=== PATIENT | male | born 1950 | race Caucasian/White ===

== ENCOUNTER 2016-06-08 10:15 | Emergency (ER) | payer OTHER ==
[~2016-06-08] VITALS: Ht 175.3 cm; Wt 80.6 kg
[~2016-06-08 10:15] MED LIST: ACET-1487 PO; AMAN100C18 PO; ASCA500 PO; ASPI81TA25 PO; ATOR-24 PO; B-COTAB18 PO; CALC1TAB10 PO; CHOL100010 PO; CLOB-58 TOP; COEN400C5 PO; CYAN100020; LISI10TA PO; MULT-884; NXM/40 PO; OXYC1TAB3 PO; PRAM1TAB52 PO; TAMS0.4C38 PO; VITA400C28 PO; [UNRECOGNIZED DRUG - CODE] PO
[2016-06-08 10:23] VITALS: TEMP 36.6; Ht 175.3 cm; Wt 80.6 kg
[2016-06-08] MEDS ORDERED: METO25TA3 PO (10:33)
[2016-06-08] MEDS ORDERED: DIAZ-165 PO (10:33)
[2016-06-08] MEDS ORDERED: CHOLTAB5 PO (10:33)
[2016-06-08] MEDS ORDERED: MoRPHine SULFATE 10 MG/ML CARP/VIAL IV STA ×2 (10:38→11:43)
[2016-06-08] MEDS ORDERED: ONDANSETRON INJ 2 MG/ML 2 ML VIAL IV STA (10:38)
[2016-06-08] MEDS ORDERED: SODIUM CHLORIDE 0.9% 1000ML 1,000 ML IV STA (10:38)
[2016-06-08 10:53] VITALS: O2SAT 99
[2016-06-08 11:16] LABS: BASO % 0.2 %; BASO ABS # 0.02 K/uL (0-0.2); COMPLETE YES; EOS % 0.8 %; HEMATOCRIT 40.9 % (42-52); IG% 0.3 %; LYMPH % 9.1 %; LYMPH ABS # 0.92 K/uL (1.2-3.4); MEAN CELL VOLUME 89.1 fL (80-100); MEAN CORPUSCULAR HEMOGLOBIN 30.9 pg (25-34); MEAN CORPUSCULAR HGB CONC 34.7 g/dl (32-36); MEAN PLATELET VOLUME 9.7 fL (7.4-10.4); MONO % 4.2 %; NEUT % 85.4 %; PLATELET COUNT 153 K/uL (130-400); RED BLOOD COUNT 4.59 M/uL (4.7-6.1); WHITE BLOOD COUNT 10.14 K/uL (4.8-10.8)
--- NOTE | 2016-06-08 11:31 | DIAGNOSTIC IMAGING REPORT ---
CT HEAD WITHOUT CONTRAST (CT) CLINICAL HISTORY: Syncope COMPARISON STUDY: 08/02/2012 TECHNIQUE: Axial CT of the brain is performed from the vertex to the skull base. IV contrast was not administered for this examination. CT DOSE: 1115.87 mGy.cm FINDINGS: No intra or extra-axial mass lesions are visualized. There is no CT evidence of acute cortical infarction. There is no evidence of midline shift. There is no acute hemorrhage. No calvarial fractures are visualized. There is no evidence of pathologic ventricular dilatation. There is no evidence of acute sinusitis. There is a right maxilla sinus polyp/retention cyst. There are multiple nasal bone fractures. IMPRESSION: 1. Multiple nasal bone fractures 2. No evidence of acute intracranial injury. No acute intracranial findings. Electronically signed by: Marv Nicole M.D. 06/08/2016 11:29 AM Dictated Date/Time: 06/08/2016 11:27 AM
[2016-06-08 11:33] LABS: BUN/CREATININE RATIO 12.4 (10-20); CALCIUM 9.7 mg/dl (8.5-10.1); CREATININE 1.1 mg/dl (0.60-1.40); POTASSIUM 4.2 mmol/L (3.5-5.1)
--- NOTE | 2016-06-08 11:35 | DIAGNOSTIC IMAGING REPORT ---
CT FACIAL BONES-MXILLOFAC WITHOUT CT DOSE: CLINICAL HISTORY: Facial pain status post trauma. Syncope. COMPARISON STUDY: No previous studies for comparison. TECHNIQUE: Helical images were acquired in the transverse plane. The study was reviewed and analyzed on the independent 3-D workstation. The pterygoid plates appear intact. The zygomatic arches appear intact. The globes appear intact. There is no evidence of orbital emphysema. The orbital burris and floor appear intact. There are multiple nasal bone fractures. There is S-shaped nasal deviation.. There is a left-sided nasal septal spur. There are bilateral maxillary sinus retention cysts. The mandibular condyles appear intact. IMPRESSION: Acute nasal bone fractures. Electronically signed by: Marv Nicole M.D. 06/08/2016 11:33 AM Dictated Date/Time: 06/08/2016 11:30 AM
--- NOTE | 2016-06-08 11:38 | DIAGNOSTIC IMAGING REPORT ---
CT SCAN OF THE CERVICAL SPINE CLINICAL HISTORY: Syncope. Neck pain. COMPARISON STUDY: CT scan of the cervical spine dated 02/22/2016. TECHNIQUE: CT scan of the cervical spine is performed from the skull base to the upper thoracic spine. Images are reviewed in the axial, sagittal, and coronal planes. IV contrast was not administered for this examination. FINDINGS: Skeletal structures: The skeletal structures are well mineralized. There is no evidence of fracture or subluxation involving the cervical spine. Vertebral body height and alignment are maintained. There is straightening of the cervical lordosis. There are postoperative changes from anterior fusion seen at C5-C7. There is near complete bony incorporation at these levels. The orthopedic hardware appears intact. The odontoid process and lateral masses are intact. The atlantoaxial articulation is preserved noting productive degenerative change. The spinous processes appear intact. There is moderate multilevel cervical spondylosis. Uncovertebral and facet arthropathy contribute to neural foraminal narrowing at several levels. A hemangioma is noted in the left pedicle and transverse process of T3. Intervertebral discs: There are changes of discectomy at C5-C6 and C6-C7. The remaining disc spaces are well maintained. Central canal: Widely patent. Soft tissues: The prevertebral and paraspinous soft tissues are within normal limits. There is atherosclerotic calcification of the carotid bulbs. Calvarium: The visualized calvarium at the skull base appears intact. Brain parenchyma: Partially visualized brain parenchyma the skull base is within normal limits. Sinuses and mastoids: The visualized paranasal sinuses are clear. The mastoid air cells are well pneumatized. Lung apices: Clear as visualized. IMPRESSION: 1. There is no evidence of fracture or subluxation involving the cervical spine. 2. Osteopenia with degenerative and postoperative change as above. Electronically signed by: Bladimir Trevino M.D. 06/08/2016 11:36 AM Dictated Date/Time: 06/08/2016 11:33 AM
[2016-06-08 11:43] LABS: THYROID STIMULATING HORMONE 0.835 uIu/ml (0.300-4.500)
[2016-06-08] MEDS ORDERED: PROMETHAZINE HCL INJ 25 MG in SODIUM CHLORIDE 0.9% 50ML 50 ML IV STA (11:43)
--- NOTE | 2016-06-08 12:00 | EMERGENCY ROOM VISIT NOTE ---
History Report prepared by Gurjit: Gale Brambila Under the Supervision of: Dr. Chico Klein M.D. First contact with patient: 10:22 Chief Complaint: SYNCOPE Stated Complaint: DIZZINESS Nursing Triage Summary: pt was talking on the phone and felt like he was going to vomit all of a sudden , went to go to the bathroom and awoke on the floor, pt states his nose was bleeding, pt has abrasions to nose and L face, pt c/o lower abd pain, states last time he passed out he had a uti, pt c/o pain between shoulder, ems called pt was walking around and bleeding had stopped from his nose History of Present Illness The patient is a 69 year old male who presents to the Emergency Room via EMS with complaints of a syncopal episode occurring this morning. The patient felt nauseous and when he tried to get up to vomit, he lost consciousness and fell to the floor. He reports hitting his head. He currently complains of nose pain. He reports a left sided chest pain. He has worsening pain with breathing. He also reports neck pain radiating down to the upper back which he states is chronic. He has a history of similar symptoms occurring a few years ago and he was diagnosed with a UTI. The patient currently also reports burning with urination. He currently denies a headache or any other complaints. He has a history of thoracic outlet syndrome. Source of History: patient Onset: this morning Position: other (global) Quality: other (syncopal episode) Associated Symptoms: + chest pain, + nausea, + neck pain, No headache Review of Systems See HPI for pertinent positives & negatives. A total of 10 systems reviewed and were otherwise negative. Past Medical & Surgical Medical Problems: (1) Benign hypertension (2) Heart disease (3) Prostate cancer Family History Cancer Diabetes mellitus Heart disease Hypertension Social History Smoking Status: Unknown if Ever Smoked Alcohol Use: none Marital Status: Occupation Status: unemployed Current/Historical Medications Scheduled Amantadine Hcl (Amantadine Hcl), 100 MG PO TID Ascorbic Acid (Vitamin C), 500 MG PO DAILY Aspirin (Aspir-Low), 1 TAB PO DAILY Atorvastatin (Lipitor), 40 MG PO DAILY B-Complex Vitamins (Vitamin B Complex), 1 TAB PO DAILY Calcium Carbonate-Cholecalcife (Calcium 1000 + D), 1 TAB PO DAILY Cholecalciferol (D-1000), 1,000 UNITS PO DAILY Coenzyme Q10 (Ubidecarenone) (Coq10), 400 MG PO DAILY Cyanocobalamin (Vitamin B12), DAILY Esomeprazole Magnesium (Nexium), 40 MG PO DAILY Levodopa/Carbidopa (Carbidopa/Levodopa 25-250 mg), 1 TAB PO TID Lisinopril (Prinivil), 10 MG PO DAILY Metoprolol Succinate (Toprol Xl), 25 MG PO DAILY Multiple Vitamin (Multi Vitamin Daily), 1 TAB DAILY Pramipexole Dihydrochloride (Mirapex), 0.25 MG PO TID Tamsulosin Hcl (Flomax), 0.4 MG PO HS Vitamin E (Alph-E), 1 CAP PO DAILY Scheduled PRN Acetaminophen (Tylenol Arthritis Ext Rel), 1,300 MG PO Q8H PRN for Pain Clobetasol Propionate (Clobetasol Propionate), 1 APPLN TOP BID PRN Diazepam (Valium), 5 MG PO HS PRN for Muscle Spasms Oxycodone Immediate Rel Tab (Roxicodone Ir), 1-2 TAB PO Q4H PRN for Severe Pain Allergies Coded Allergies: Hydrocodone (Verified Allergy, Intermediate, ITCHING, 06/08/16) Meperidine (Verified Adverse Reaction, Mild, KNOT AT INJECTION SITE WITH IM ADMINISTRATION, 06/08/16) Physical Exam Vital Signs Date Time Temp Pulse Resp B/P Pulse Ox O2 Delivery O2 Flow Rate FiO2 06/08/16 13:46 78 143/87 98 06/08/16 13:12 62 06/08/16 12:41 59 16 143/70 99 Room Air 06/08/16 10:53 61 134/88 64 148/86 63 156/90 06/08/16 10:53 99 Room Air 06/08/16 10:24 60 06/08/16 10:23 36.6 66 18 139/79 99 Room Air Physical Exam GENERAL: Patient is a healthy-appearing well-nourished HEAD: Normocephalic atraumatic EYES: Ocular movements intact pupils equal and react to light OROPHARYNX mucous membranes are moist no exudates present no erythema or edema present NECK: Supple no nuchal rigidity. Cervical collar in place. Complaining of pain to the T10 area. CHEST: Good equal expansion LUNGS: Clear and equal to auscultation CARDIAC: Normal S1 and S2 ABDOMEN: Soft nontender no guarding BACK: No CVA tenderness EXTREMITIES: No pain upon palpation normal muscle strength in all groups no clubbing cyanosis or edema NEURO: Patient is following commands is answering questions appropriately. Alert and oriented x3 Cranial Nerves 2-12 grossly intact Medical Decision & Procedures ER Provider Diagnostic Interpretation: CT results as stated below per my review and radiologist interpretation: CT FACIAL BONES-MXILLOFAC WITHOUT CT DOSE: CLINICAL HISTORY: Facial pain status post trauma. Syncope. COMPARISON STUDY: No previous studies for comparison. TECHNIQUE: Helical images were acquired in the transverse plane. The study was reviewed and analyzed on the independent 3-D workstation. The pterygoid plates appear intact. The zygomatic arches appear intact. The globes appear intact. There is no evidence of orbital emphysema. The orbital burris and floor appear intact. There are multiple nasal bone fractures. There is S-shaped nasal deviation.. There is a left-sided nasal septal spur. There are bilateral maxillary sinus retention cysts. The mandibular condyles appear intact. IMPRESSION: Acute nasal bone fractures. Electronically signed by: Marv Nicole M.D. 06/08/2016 11:33 AM Dictated Date/Time: 06/08/2016 11:[address] SCAN OF THE CERVICAL SPINE CLINICAL HISTORY: Syncope. Neck pain. COMPARISON STUDY: CT scan of the cervical spine dated 02/22/2016. TECHNIQUE: CT scan of the cervical spine is performed from the skull base to the upper thoracic spine. Images are reviewed in the axial, sagittal, and coronal planes. IV contrast was not administered for this examination. FINDINGS: Skeletal structures: The skeletal structures are well mineralized. There is no evidence of fracture or subluxation involving the cervical spine. Vertebral body height and alignment are maintained. There is straightening of the cervical lordosis. There are postoperative changes from anterior fusion seen at C5-C7. There is near complete bony incorporation at these levels. The orthopedic hardware appears intact. The odontoid process and lateral masses are intact. The atlantoaxial articulation is preserved noting productive degenerative change. The spinous processes appear intact. There is moderate multilevel cervical spondylosis. Uncovertebral and facet arthropathy contribute to neural foraminal narrowing at several levels. A hemangioma is noted in the left pedicle and transverse process of T3. Intervertebral discs: There are changes of discectomy at C5-C6 and C6-C7. The remaining disc spaces are well maintained. Central canal: Widely patent. Soft tissues: The prevertebral and paraspinous soft tissues are within normal limits. There is atherosclerotic calcification of the carotid bulbs. Calvarium: The visualized calvarium at the skull base appears intact. Brain parenchyma: Partially visualized brain parenchyma the skull base is within normal limits. Sinuses and mastoids: The visualized paranasal sinuses are clear. The mastoid air cells are well pneumatized. Lung apices: Clear as visualized. IMPRESSION: 1. There is no evidence of fracture or subluxation involving the cervical spine. 2. Osteopenia with degenerative and postoperative change as above. Electronically signed by: Bladimir Trevino M.D. 06/08/2016 11:36 AM Dictated Date/Time: 06/08/2016 11:[address] HEAD WITHOUT CONTRAST (CT) CLINICAL HISTORY: Syncope COMPARISON STUDY: 08/02/2012 TECHNIQUE: Axial CT of the brain is performed from the vertex to the skull base. IV contrast was not administered for this examination. CT DOSE: 1115.87 mGy.cm FINDINGS: No intra or extra-axial mass lesions are visualized. There is no CT evidence of acute cortical infarction. There is no evidence of midline shift. There is no acute hemorrhage. No calvarial fractures are visualized. There is no evidence of pathologic ventricular dilatation. There is no evidence of acute sinusitis. There is a right maxilla sinus polyp/retention cyst. There are multiple nasal bone fractures. IMPRESSION: 1. Multiple nasal bone fractures 2. No evidence of acute intracranial injury. No acute intracranial findings. Electronically signed by: Marv Nicole M.D. 06/08/2016 11:29 AM Dictated Date/Time: 06/08/2016 11:27 AM X-ray results as stated below per interpretation by me and the radiologist: LEFT RIBS UNILATERAL WITH PA CHEST CLINICAL HISTORY: Pt c/o left sided rib pain COMPARISON STUDY: Chest 12/08/2015. FINDINGS: Cervical spinal fusion hardware is again noted. The lungs are clear. The heart is normal in size. No pleural effusions. No pneumothorax. No acute rib fractures. IMPRESSION: No acute rib fractures. No pneumothorax. Electronically signed by: Daryl Jain M.D. 06/08/2016 1:14 PM Dictated Date/Time: 06/08/2016 1:12 PM Laboratory Results 06/08/16 10:53 Red Blood Count 4.59, Mean Corpuscular Volume 89.1, Mean Corpuscular Hemoglobin 30.9, Mean Corpuscular Hemoglobin Concent 34.7, Mean Platelet Volume 9.7, Neutrophils (%) (Auto) 85.4, Lymphocytes (%) (Auto) 9.1, Monocytes (%) (Auto) 4.2, Eosinophils (%) (Auto) 0.8, Basophils (%) (Auto) 0.2, Neutrophils # (Auto) 8.66, Lymphocytes # (Auto) 0.92, Monocytes # (Auto) 0.43, Eosinophils # (Auto) 0.08, Basophils # (Auto) 0.02 06/08/16 10:53 Test 06/08/16 10:53 06/08/16 11:47 White Blood Count 10.14 K/uL (4.8-10.8) Red Blood Count 4.59 M/uL (4.7-6.1) Hemoglobin 14.2 g/dL (14.0-18.0) Hematocrit 40.9 % (42-52) Mean Corpuscular Volume 89.1 fL (80-100) Mean Corpuscular Hemoglobin 30.9 pg (25-34) Mean Corpuscular Hemoglobin Concent 34.7 g/dl (32-36) Platelet Count 153 K/uL (130-400) Mean Platelet Volume 9.7 fL (7.4-10.4) Neutrophils (%) (Auto) 85.4 % Lymphocytes (%) (Auto) 9.1 % Monocytes (%) (Auto) 4.2 % Eosinophils (%) (Auto) 0.8 % Basophils (%) (Auto) 0.2 % Neutrophils # (Auto) 8.66 K/uL (1.4-6.5) Lymphocytes # (Auto) 0.92 K/uL (1.2-3.4) Monocytes # (Auto) 0.43 K/uL (0.11-0.59) Eosinophils # (Auto) 0.08 K/uL (0-0.5) Basophils # (Auto) 0.02 K/uL (0-0.2) RDW Standard Deviation 41.0 fL (36.4-46.3) RDW Coefficient of Variation 12.6 % (11.5-14.5) Immature Granulocyte % (Auto) 0.3 % Immature Granulocyte # (Auto) 0.03 K/uL (0.00-0.02) Anion Gap 11.0 mmol/L (3-11) Est Creatinine Clear Calc Drug Dose 65.2 ml/min Estimated GFR () 80.1 Estimated GFR (Non- 69.1 BUN/Creatinine Ratio 12.4 (10-20) Calcium Level 9.7 mg/dl (8.5-10.1) Total Bilirubin 1.0 mg/dl (0.2-1) Direct Bilirubin 0.2 mg/dl (0-0.2) Aspartate Amino Transf (AST/SGOT) 26 U/L (15-37) Alanine Aminotransferase (ALT/SGPT) 10 U/L (12-78) Alkaline Phosphatase 58 U/L (45-117) Total Protein 7.4 gm/dl (6.4-8.2) Albumin 4.2 gm/dl (3.4-5.0) Thyroid Stimulating Hormone (TSH) 0.835 uIu/ml (0.300-4.500) Urine Color YELLOW Urine Appearance CLEAR (CLEAR) Urine pH 5.0 (4.5-7.5) Urine Specific [place] 1.014 (1.000-1.030) Urine Protein NEG (NEG) Urine Glucose (UA) NEG (NEG) Urine Ketones NEG (NEG) Urine Occult Blood NEG (NEG) Urine Nitrite NEG (NEG) Urine Bilirubin NEG (NEG) Urine Urobilinogen NEG (NEG) Urine Leukocyte Esterase NEG (NEG) Labs reviewed by ED physician. Medications Administered Medications (Trade) Dose Ordered Sig/Ramana Route Start Time Stop Time Status Last Admin Dose Admin Sodium Chloride (Nss 1000ml) 1,000 ml @ 999 mls/hr Q1H1M STAT IV 06/08/16 10:38 06/08/16 11:38 DC 06/08/16 11:09 999 MLS/HR Morphine Sulfate (MoRPHine SULFATE INJ) 10 mg NOW STAT IV 06/08/16 10:38 06/08/16 10:40 DC 06/08/16 11:10 10 MG Ondansetron HCl (Zofran Inj) 4 mg NOW STAT IV 06/08/16 10:38 06/08/16 10:40 DC 06/08/16 11:10 4 MG Morphine Sulfate 10 mg 10 mg NOW STAT IV 06/08/16 11:43 06/08/16 11:44 DC 06/08/16 12:25 10 MG Promethazine HCl/ Sodium Chloride (Phenergan Inj/ Nss 50ml) 51 ml @ 204 mls/hr NOW STAT IV 06/08/16 11:43 06/08/16 11:57 DC 06/08/16 12:24 204 MLS/HR Ketorolac Tromethamine (Toradol Inj) 30 mg NOW STAT IV 06/08/16 12:06 06/08/16 12:07 DC 06/08/16 12:49 30 MG ECG Indication: chest pain, syncope Rate (beats per minute): 62 Rhythm: normal sinus Findings: no acute ischemic change, no ectopy ED Course 1022: Past medical records reviewed. The patient was evaluated in room B08. A complete history and physical examination was performed. 1038: Zofran Inj 4 mg IV, Morphine Sulfate 10 mg IV, Sodium Chloride 1000 ml @ 999 mls/hr IV 1143: Promethazine HCl 25 mg/Sodium Chloride 51 ml @ 204 mls/hr IV, Morphine Sulfate 10 mg IV. I reevaluated the patient who is resting comfortably. 1206: Toradol Inj 30 mg IV 1229: I reevaluated the patient who is resting comfortably. 1349: Upon reexamination the patient is doing well. I discussed results and treatment plan with the patient. He verbalizes agreement and understanding. The patient is ready for discharge. Medical Decision Differential diagnosis: Etiologies such as vasovagal event, infection, hypoglycemia, electrolyte abnormalities, cardiac sources, intracerebral event, toxicologic, neurologic, as well as others were entertained. This is a 65-year-old male presents to the emergency department complaining of multiple complaints. The patient has a history of thoracic outlet syndrome. He is complaining of what appears to be a vasovagal episode at home as he had warning that he was going to pass out. He does have nasal bone fractures. In the emergency department the patient was given 10 of morphine for his pain 2. He was also given Toradol. CAT scan of the head and C-spine do not show any evidence of fracture dislocation. The patient does have 2 nasal bone fractures. I do believe that the patient is well enough to be discharged home as she does have follow-up with his primary care physician on . I strongly cautioned the patient to return if symptoms worsen. Patient was in agreement with the treatment plan. Impression Primary Impression: Syncope Scribe Attestation The scribe's documentation has been prepared under my direction and personally reviewed by me in its entirety. I confirm that the note above accurately reflects all work, treatment, procedures, and medical decision making performed by me. Departure Information Dispostion Home / Self-Care Prescriptions Oxycodone Immediate Rel Tab (ROXICODONE IR) 5 Mg Tab 1-2 TAB PO Q4H Y for Severe Pain, #14 TAB Prov: Chico Klein MD 06/08/16 Referrals Benito Lloyd M.D. (PCP) Forms HOME CARE DOCUMENTATION FORM, IMPORTANT VISIT INFORMATION Patient Instructions ED Near Syncope Vasovagal, My [facility] Additional Instructions You received narcotic or benzodiazepene medication while in the emergency room today. Do not drive, operate heavy machinery, or drink alcohol under the influence of this medication. Take 600 mg Ibuprofen every 6 hours Take Oxy for breakthrough pain You have been examined and treated today on an emergency basis only. This is not a substitute for, or an effort to provide, complete comprehensive medical care. It is impossible to recognize and treat all injuries or illnesses in a single emergency department visit. It is therefore important that you follow up closely with DR Lloyd. Call as soon as possible for an appointment. Thank you for your time and consideration. I look forward to speaking with you again soon. Please don't hesitate to call us if you have any questions. Problem Qualifiers Primary Impression: Syncope Syncope type: vasovagal syncope Qualified Codes: R55 - Syncope and collapse
[2016-06-08] MEDS ORDERED: KETOROLAC TROMETHAMINE 30 MG/ML VIAL IV STA (12:06)
[2016-06-08] MEDS ORDERED: OXYC1TAB3 PO (12:08)
[2016-06-08 12:12] LABS: URINE APPEARANCE CLEAR (CLEAR); URINE BILIRUBIN NEG (NEG); URINE COLOR YELLOW; URINE NITRITE NEG (NEG); URINE SPECIFIC GRAVITY 1.014 (1.000-1.030); UROBILINOGEN NEG (NEG)
[2016-06-08 12:20] LABS: MANUAL MICROSCOPIC REQUIRED? NO; REVIEW REQ? NO
--- NOTE | 2016-06-08 13:16 | DIAGNOSTIC IMAGING REPORT ---
LEFT RIBS UNILATERAL WITH PA CHEST CLINICAL HISTORY: Pt c/o left sided rib pain COMPARISON STUDY: Chest 12/08/2015. FINDINGS: Cervical spinal fusion hardware is again noted. The lungs are clear. The heart is normal in size. No pleural effusions. No pneumothorax. No acute rib fractures. IMPRESSION: No acute rib fractures. No pneumothorax. Electronically signed by: Daryl Jain M.D. 06/08/2016 1:14 PM Dictated Date/Time: 06/08/2016 1:12 PM
[2016-06-08 13:46] VITALS: BP 143/87; PULSE 78; O2SAT 98
[2016-07-28] MEDS ORDERED: OXYB5TAB74 PO (11:58)
== END 2016-06-08 13:46 | disposition home or self-care (01) ==
LOC: EDBD 10:15 → C.EDB 10:16
DX: R55 Syncope and collapse (principal); S02.2XXA Fracture of nasal bones, initial encounter for closed fracture; M85.88 Other specified disorders of bone density and structure, other site; Z85.46 Personal history of malignant neoplasm of prostate; I10 Essential (primary) hypertension; Z83.3 Family history of diabetes mellitus; Z82.49 Family history of ischemic heart disease and other diseases of the circulatory system; Z79.82 Long term (current) use of aspirin; X58.XXXA Exposure to other specified factors, initial encounter; Y93.89 Activity, other specified; Y92.89 Other specified places as the place of occurrence of the external cause; Y99.8 Other external cause status; G54.0 Brachial plexus disorders

== ENCOUNTER → 2016-07-28 | Outpatient (CLI) | payer OTHER ==
[~2016-07-28] MED LIST changes: -CHOL100010 PO; +CHOLTAB5 PO; +DIAZ-165 PO; +DTR/5 PO; +METO25TA3 PO
[2016-07-28 11:45] VITALS: BP 116/63; PULSE 54; TEMP 36.7; O2SAT 98
--- NOTE | 2016-07-28 16:25 | Radiation Oncology Follow-Up ---
Radiation Oncology Follow-Up Date of Visit Jul 28, 2016. Reason For Visit Six-month follow-up Radiation Completion Date 06/04/14 Diagnosis (1) Prostate cancer Status: Resolved Onset Date: 01/29/2014 Location: left lobe of the prostate Histology Subtype: adenocarcinoma Permanent Comment: Urinary tract infection with an elevated PSA Improvement in PSA then steady increase status post prostate biopsy 01/29/2014 revealing adenocarcinoma [place] 3+3 Status post seed implant as monotherapy with cesium 131 on 06/04/2014 received 115 parada, 76 seeds were placed Last Edited By: Ginger Rich on Jan 08, 2015 14:31 Interim History She's been doing well over the past 6 months in regards to his urinary status. Previously his AUA score was 16. Today he gave a score of 7 he completed and expanded prostate cancer index composite for clinical practice and gave a score of 2 of 12 urinary incontinence symptoms. He gave a score of 2 of 12 and urinary irritation symptoms. He gave a score of 0 of 12 and bowel symptoms. He gave a score of 5 of 12 and sexual symptoms. He gave a score of 2 of 12 and hormonal vitality symptoms. His total was 11 of 60. He had a recheck PSA 01/20 that was 0.695. He had stopped Ditropan and found that he had increasing difficulties with his urinary stream. He restarted the medication is doing well. He has had other health issues. He had a syncopal episode and is currently being evaluated. He has a Holter monitor in place. Because of his low blood pressure lisinopril has been stopped. Allergies Coded Allergies: Hydrocodone (Verified Allergy, Intermediate, ITCHING, 06/08/16) Meperidine (Verified Adverse Reaction, Mild, KNOT AT INJECTION SITE WITH IM ADMINISTRATION, 06/08/16) Home Medications Scheduled Amantadine Hcl (Amantadine Hcl), 100 MG PO BID Ascorbic Acid (Vitamin C), 500 MG PO DAILY Aspirin (Aspir-Low), 1 TAB PO DAILY Atorvastatin (Lipitor), 40 MG PO DAILY B-Complex Vitamins (Vitamin B Complex), 1 TAB PO DAILY Calcium Carbonate-Cholecalcife (Calcium 1000 + D), 1 TAB PO DAILY Cholecalciferol (D-1000), 1,000 UNITS PO DAILY Coenzyme Q10 (Ubidecarenone) (Coq10), 400 MG PO DAILY Cyanocobalamin (Vitamin B12), DAILY Esomeprazole Magnesium (Nexium), 40 MG PO DAILY Levodopa/Carbidopa (Carbidopa/Levodopa 25-250 mg), 1 TAB PO BID Metoprolol Succinate (Toprol Xl), 25 MG PO DAILY Multiple Vitamin (Multi Vitamin Daily), 1 TAB DAILY Oxybutynin Chloride (Ditropan), 1 TAB PO BID Pramipexole Dihydrochloride (Mirapex), 0.25 MG PO BID Tamsulosin Hcl (Flomax), 0.4 MG PO HS Vitamin E (Alph-E), 1 CAP PO DAILY Scheduled PRN Acetaminophen (Tylenol Arthritis Ext Rel), 1,300 MG PO Q8H PRN for Pain Clobetasol Propionate (Clobetasol Propionate), 1 APPLN TOP BID PRN Review of Systems Gastrointestinal: Symptoms: WNL Oral: Symptoms: No Problems Other Oral Symptoms: Trouble swallowing at times Respiratory: Symptoms: WNL, SOB At Rest, Moist Cough, SOB With Exertion, Productive Cough Sputum Character: Productive cough of thick key/pink sputum at times Other Respiratory: RUDOLPH Urinary: Symptoms: Incontinence, Nocturia Comments: Nocturia x 2-3, Stress incontin at times, See AUA & EPIC Skin: Symptoms: No Problems Physical Exam Vital Signs Date Time Temp Pulse Resp B/P Pulse Ox O2 Delivery O2 Flow Rate FiO2 07/28/16 11:45 36.7 54 16 116/63 98 Fatigue: None General Appearance: no apparent distress Eyes: normal inspection, EOMI ENT: normal ENT inspection, hearing grossly normal Respiratory/Chest: lungs clear, no respiratory distress, no accessory muscle use Cardiovascular: regular rate, rhythm, no gallop, no murmur Abdomen: non tender, soft Anal / Rectum: Normal sphincter tone. Prostate consistent with seed implant. No rectal masses no rectal bleeding. Extremities: no pedal edema Neurologic/Psychiatric: alert, + depressed affect, + pertinent finding ( shuffling gait) Skin: warm/dry Lymphatic: no adenopathy Laboratory Studies Test 06/08/16 10:53 06/08/16 11:47 07/28/16 12:12 White Blood Count 10.14 K/uL (4.8-10.8) Red Blood Count 4.59 M/uL (4.7-6.1) Hemoglobin 14.2 g/dL (14.0-18.0) Hematocrit 40.9 % (42-52) Mean Corpuscular Volume 89.1 fL (80-100) Mean Corpuscular Hemoglobin 30.9 pg (25-34) Mean Corpuscular Hemoglobin Concent 34.7 g/dl (32-36) Platelet Count 153 K/uL (130-400) Mean Platelet Volume 9.7 fL (7.4-10.4) Neutrophils (%) (Auto) 85.4 % Lymphocytes (%) (Auto) 9.1 % Monocytes (%) (Auto) 4.2 % Eosinophils (%) (Auto) 0.8 % Basophils (%) (Auto) 0.2 % Neutrophils # (Auto) 8.66 K/uL (1.4-6.5) Lymphocytes # (Auto) 0.92 K/uL (1.2-3.4) Monocytes # (Auto) 0.43 K/uL (0.11-0.59) Eosinophils # (Auto) 0.08 K/uL (0-0.5) Basophils # (Auto) 0.02 K/uL (0-0.2) RDW Standard Deviation 41.0 fL (36.4-46.3) RDW Coefficient of Variation 12.6 % (11.5-14.5) Immature Granulocyte % (Auto) 0.3 % Immature Granulocyte # (Auto) 0.03 K/uL (0.00-0.02) Sodium Level 142 mmol/L (136-145) Potassium Level 4.2 mmol/L (3.5-5.1) Chloride Level 108 mmol/L (98-107) Carbon Dioxide Level 23 mmol/L (21-32) Anion Gap 11.0 mmol/L (3-11) Blood Urea Nitrogen 14 mg/dl (7-18) Creatinine 1.10 mg/dl (0.60-1.40) Est Creatinine Clear Calc Drug Dose 65.2 ml/min Estimated GFR () 80.1 Estimated GFR (Non- 69.1 BUN/Creatinine Ratio 12.4 (10-20) Random Glucose 109 mg/dl (70-99) Calcium Level 9.7 mg/dl (8.5-10.1) Total Bilirubin 1.0 mg/dl (0.2-1) Direct Bilirubin 0.2 mg/dl (0-0.2) Aspartate Amino Transferase (AST) 26 U/L (15-37) Alanine Aminotransferase (ALT) 10 U/L (12-78) Alkaline Phosphatase 58 U/L (45-117) Total Protein 7.4 gm/dl (6.4-8.2) Albumin 4.2 gm/dl (3.4-5.0) Thyroid Stimulating Hormone (TSH) 0.835 uIu/ml (0.300-4.500) Urine Color YELLOW Urine Appearance CLEAR (CLEAR) Urine pH 5.0 (4.5-7.5) Urine Specific [place] 1.014 (1.000-1.030) Urine Protein NEG (NEG) Urine Glucose (UA) NEG (NEG) Urine Ketones NEG (NEG) Urine Occult Blood NEG (NEG) Urine Nitrite NEG (NEG) Urine Bilirubin NEG (NEG) Urine Urobilinogen NEG (NEG) Urine Leukocyte Esterase NEG (NEG) Prostate Specific Antigen 0.482 ng/ml (0.000-4.000) Assessment & Plan Plan: PSA was drawn today he'll be notified as to results. I've given him an order to have a PSA again in 6 months. He'll have this drawn closer to home. We asked him to return to our office in 1 year. Continue follow-up with his primary physician. We discussed orthostatic hypotension. He knows that several of his medications do cause lightheadedness with standing. He'll continue to make an effort to get up slowly. He may call our office if he has any questions or concerns in the interim. Total Time In Follow-Up I spent 25 minutes speaking to the patient performing examination. I spent 15 minutes reviewing information completing this note. Copy To Benito Lloyd M.D.; Arely Méndez MD
== END | disposition home or self-care (01) ==
LOC: C.ONC 11:30
PROVIDERS: ATTEND Physician Assistant Medical
DX: Z08 Encounter for follow-up examination after completed treatment for malignant neoplasm (principal); Z92.3 Personal history of irradiation; Z85.46 Personal history of malignant neoplasm of prostate

== ENCOUNTER → 2017-02-09 | Outpatient (CLI) | payer OTHER ==
[~2017-02-09] MED LIST changes: -DIAZ-165 PO; -DTR/5 PO; -LISI10TA PO; +OXYB5TAB74 PO; -OXYC1TAB3 PO
--- NOTE | 2017-02-15 14:07 | CODING QUERY MEDICAL NECESSITY ---
SUPPORTING DIAGNOSIS NEEDED Dr. Painting, A supporting diagnosis is required for the test/procedure performed on this patient in order for us to be reimbursed by the patient's insurance. Please provide a supporting diagnosis for the following test/procedure listed below next to the test name along with your signature. *If there is no additional diagnosis for this patient that would support the following test/procedure please document that below next to the test/procedure. Test(s)/Procedure(s) that require a supporting diagnosis: * 11958 PSA DIAGNOSIS: DATE OF SERVICE: 02/09/17 Provider Signature: Date: Thank you Kade Black [facility] Information Management Once completed, please kindly fax back to [phone] For questions please call [phone]
== END | disposition home or self-care (01) ==
LOC: C.LABPBG 14:23
PROVIDERS: ATTEND Urology
DX: E55.9 Vitamin D deficiency, unspecified (principal); R39.9 Unspecified symptoms and signs involving the genitourinary system; C61 Malignant neoplasm of prostate

== ENCOUNTER → 2017-05-31 | Outpatient (CLI) | payer OTHER ==
[~2017-05-31] MED LIST changes: +DTR/5 PO; -OXYB5TAB74 PO
== END | disposition home or self-care (01) ==
LOC: C.LABPBG 12:25
PROVIDERS: ATTEND Internal Medicine Gastroenterology
DX: E55.9 Vitamin D deficiency, unspecified (principal)

== ENCOUNTER → 2017-06-15 | Outpatient (CLI) | payer OTHER ==
[2017-06-15 12:31] LABS: BASO % 0.4 %; BASO ABS # 0.02 K/uL (0-0.2); EOS % 2.3 %; EOS ABS # 0.11 K/uL (0-0.5); HEMATOCRIT 40.8 % (42-52); IG# 0.01 K/uL (0.00-0.02); LYMPH % 20.8 %; LYMPH ABS # 1.01 K/uL (1.2-3.4); MEAN CELL VOLUME 89.9 fL (80-100); MEAN CORPUSCULAR HEMOGLOBIN 30.8 pg (25-34); MEAN CORPUSCULAR HGB CONC 34.3 g/dl (32-36); MEAN PLATELET VOLUME 10.6 fL (7.4-10.4); MONO % 8.2 %; NEUT % 68.1 %; NEUT ABS # 3.31 K/uL (1.4-6.5); PLATELET COUNT 149 K/uL (130-400); RED CELL DISTRIBUTION WIDTH CV 12.7 % (11.5-14.5); RED CELL DISTRIBUTION WIDTH SD 41.8 fL (36.4-46.3); WHITE BLOOD COUNT 4.86 K/uL (4.8-10.8)
[2017-06-15 12:49] LABS: ALBUMIN 4.2 gm/dl (3.4-5.0); ALT/SGPT 41 U/L (12-78); BLOOD UREA NITROGEN 12 mg/dl (7-18); CALCIUM 9.9 mg/dl (8.5-10.1); CARBON DIOXIDE 29 mmol/L (21-32); CHOLESTEROL 131 mg/dl (0-200); CREATININE 1.21 mg/dl (0.60-1.40); GLUCOSE 111 mg/dl (70-99); POTASSIUM 4.7 mmol/L (3.5-5.1); SODIUM 141 mmol/L (136-145)
[2017-06-15 12:52] LABS: ALKALINE PHOSPHATASE 46 U/L (45-117); AST/SGOT 30 U/L (15-37); LDL CHOLESTEROL CALCULATED 63 mg/dl; TOTAL PROTEIN 7.3 gm/dl (6.4-8.2)
== END | disposition home or self-care (01) ==
LOC: C.LABPBG 09:26
PROVIDERS: ATTEND Neuromusculoskeletal Medicine & OMM
DX: Z00.00 Encounter for general adult medical examination without abnormal findings (principal); I10 Essential (primary) hypertension; E78.5 Hyperlipidemia, unspecified

== ENCOUNTER → 2017-07-04 | Outpatient (CLI) | payer OTHER ==
[~2017-07-04] MED LIST changes: -METO25TA3 PO; +METO25TA4 PO
== END | disposition home or self-care (01) ==
LOC: C.LABPBG 12:32
PROVIDERS: ATTEND Neuromusculoskeletal Medicine & OMM
DX: R73.01 Impaired fasting glucose (principal)

== ENCOUNTER → 2017-07-26 | Outpatient (CLI) | payer OTHER ==
[~2017-07-26] MED LIST changes: +LORA-741 PO; +MIRA1TAB3 PO; +MIRT15TA2 PO; +TROS1CAP2 PO
[2017-07-26 13:02] VITALS: BP 132/75; PULSE 88; TEMP 36.8; O2SAT 98
--- NOTE | 2017-07-26 14:32 | Radiation Oncology Follow-Up ---
Radiation Oncology Follow-Up Date of Visit Jul 26, 2017. Reason For Visit Annual follow-up Radiation Completion Date Cesium 131 seed implant as monotherapy on 06/04/14 Diagnosis (1) Prostate cancer Status: Resolved Onset Date: 01/29/2014 Location: Left lobe of the prostate Histology Subtype: Adenocarcinoma Permanent Comment: Urinary tract infection with an elevated PSA Improvement in PSA then steady increase status post prostate biopsy 01/29/2014 revealing adenocarcinoma [place] 3+3 Status post seed implant as monotherapy with cesium 131 on 06/04/2014 received 115 parada, 76 seeds were placed Last Edited By: Ginger Rich on Jan 08, 2015 14:31 Interim History He is continue follow-up with Dr. Painting. He had a PSA February 09, 2017. Was found to be 0.525. He does have a continue to have urinary difficulty and is on 3 different medications to help with urination. His AUA score was 9. This was similar to last year with a score of 7. He completed and expanded prostate cancer composite for clinical practice and gave a score of 3 of 12 and urinary incontinence symptoms. He gave a score of 4 of 12 and urinary irritation symptoms. He gave a score of 1 of 12 and bowel symptoms. He gave a score of 512 and sexual symptoms. He gave a score of 5 of 12 and hormonal vitality symptoms. His total was 18 of 60. He continues to have issues with Parkinson's. He is following with a neurologist at [place]. He had stopped 1 of his medications and had a poor appetite. He lost 30 pounds. He restarted the medication is now gained back 6. Allergies Coded Allergies: Hydrocodone (Verified Allergy, Intermediate, ITCHING, 06/08/16) Meperidine (Verified Adverse Reaction, Mild, KNOT AT INJECTION SITE WITH IM ADMINISTRATION, 06/08/16) Home Medications Scheduled Ascorbic Acid (Vitamin C), 500 MG PO DAILY Aspirin (Aspir-Low), 1 TAB PO DAILY Atorvastatin (Lipitor), 40 MG PO DAILY Calcium Carbonate-Cholecalcife (Calcium 1000 + D), 1 TAB PO DAILY Cholecalciferol (D-1000), 1,000 UNITS PO DAILY Esomeprazole Magnesium (Nexium), 40 MG PO DAILY Metoprolol Succinate (Toprol Xl), 25 MG PO DAILY Mirtazapine Soltab (Remeron Soltab), 7.5 MG PO HS Multiple Vitamin (Multi Vitamin Daily), 1 TAB DAILY Tamsulosin Hcl (Flomax), 0.4 MG PO HS Scheduled PRN Acetaminophen (Tylenol Arthritis Ext Rel), 1,300 MG PO Q8H PRN for Pain Clobetasol Propionate (Clobetasol Propionate), 1 APPLN TOP BID PRN Lorazepam (Ativan), 0.5 MG PO DAILY PRN for Anxiety Review of Systems Gastrointestinal: Symptoms: WNL GI Comments: No fiber supplements;Takes a clear laxative PRN; Oral: Symptoms: No Problems Other Oral Symptoms: Admits to trouble swallowing at times;Choking sensation at times; Respiratory: Symptoms: Productive Cough Sputum Character: Greenish or grayish sputum when cough productive; Other Respiratory: RUDOLPH Urinary: Symptoms: Incontinence, Nocturia Comments: Doesn't ignore urge to void;1 void/night;takes flomax; Skin: Symptoms: No Problems Physical Exam Vital Signs Date Time Temp Pulse Resp B/P (MAP) Pulse Ox O2 Delivery O2 Flow Rate FiO2 07/26/17 13:02 36.8 88 20 132/75 98 Fatigue: Moderate General Appearance: + pertinent finding (Tremor of the right hand) ENT: normal ENT inspection, hearing grossly normal Neck: no adenopathy, thyroid normal Respiratory/Chest: lungs clear, no respiratory distress, no accessory muscle use Cardiovascular: regular rate, rhythm, no gallop, no murmur Abdomen: non tender, soft Neurologic/Psychiatric: + depressed affect, + pertinent finding (Masked face) Skin: warm/dry Pain Management Patient Reports Pain: Yes Side: Right Pain Location: Arm Initial Pain Intensity: 2.5 Pain Management Plan He does not require any pain management. Is not taking any medications at this time. If he has difficulty he will speak to his primary care physician. Laboratory Laboratory Results: pending Pathology Pathology Results: not applicable Imaging Imaging Studies: not applicable Assessment & Plan Plan: Continue regular follow-up with urology. He will be seeing Dr. Painting in 6 months. A PSA was drawn today. He will be notified as to results. There is a concern that there has been a slow increase. He is currently satisfied with his urinary status. He is following the instructions by urology and the medications are helping with his urination. He is also on mybetric and one other medication that will be added to the medication list. We asked him to return to our office in 1 year. He may call if he has any questions or concerns in the interim. Total Time In Follow-Up I spent 20 minutes speaking to the patient and performing examination. I spent 15 minutes reviewing information and completing this note. Copy To Donald Caballero D.O.; Emil Painting MD
== END | disposition home or self-care (01) ==
LOC: C.ONC 12:46
PROVIDERS: ATTEND Physician Assistant Medical
DX: Z08 Encounter for follow-up examination after completed treatment for malignant neoplasm (principal); Z92.3 Personal history of irradiation; Z85.46 Personal history of malignant neoplasm of prostate

== ENCOUNTER 2024-11-10 12:39 | Inpatient (IN) ==
--- NOTE | 2024-11-10 15:27 | Emergency Department Note ---
Impression & Plan Generalized weakness, Acute UTI (urinary tract infection), Acute kidney injury superimposed on chronic kidney disease, Fall, Elevated troponin, Leukocytosis ED Provider Note HISTORY OF PRESENT ILLNESS: Patient is a 73-year-old male presenting with generalized weakness, slurred speech and a fall. Daughter helps provide history. Reports that the patient fell out of bed this morning at around 3:30 AM. Patient reports that he had accidentally wet the bed and was trying to get out of bed when he slipped and fell. He reportedly was heard to fall and his daughter and daughter's significant other were able to pick him up. Patient does report he hit his head but denies loss of consciousness. He is on an 81 mg aspirin daily. He states that he slipped and fell directly back onto his back. He is also complaining of some low back pain. Denies any numbness or tingling down his legs. Denies any bowel or bladder incontinence. Daughter does report that for the last 48 hours the patient has had significant weakness. Daughter significant other reports he has had to carry the patient around the house secondary to the patient not being able to get up and get around. Patient reports he just feels very weak. He normally ambulates with a walker at baseline. Daughter also reports that starting yesterday morning since the patient woke up, he has had notable slurred speech. Patient denies any chest pain or shortness of breath prior to his fall. He reports that he just fell out of bed. He denies any abdominal pain, nausea or vomiting. No reported fever. Daughter reports the patient has been having hallucinations, which have been intermittent over the last year, but more prominent over the last 48 hours. Patient denies any dysuria or hematuria. ROS: as above PHYSICAL EXAM: Constitutional: Patient appears in no acute distress. HENT: Head: Normocephalic and atraumatic. Eyes: EOMI, PERRL Mouth/Throat: Mucous membranes moist. Neck: Trachea midline. Neck supple. No midline cervical spine tenderness to palpation. Cardiovascular: Paced rhythm. No murmurs, rubs or gallops. Intact distal pulses. Pulmonary/Chest: No respiratory distress. Breath sounds clear and equal bilaterally. No wheezes or rales. No chest wall tenderness to palpation. Abdominal: Abdomen soft, no tenderness, rebound or guarding. Back: No midline spinal tenderness, no paraspinal tenderness, no CVA tenderness. Musculoskeletal: No edema, tenderness or deformity noted. No laxity or tenderness to the pelvis with palpation. Skin: Warm and dry. No rash, erythema, pallor or cyanosis Psychiatric: Appropriate mood and affect for situation. Neurological: Alert. Patient has notable slurred speech. Facies symmetric. Strength 5/5 in bilateral upper and lower extremities. SILT throughout bilateral upper and lower extremities. MDM: - Vitals signs showed tachycardia. - History obtained via patient. History as above. - Chronic conditions affecting care: HTN; HLD; prostate cancer - Differential diagnoses include, but are not limited to: intracranial hemorrhage; CVA; pneumonia; viral syndrome; UTI; electrolyte abnormality; dehydration - Order placed for continuous cardiac monitoring. At this time, monitor showed rate of 104 bpm with paced rhythm, per my interpretation. - External medical records reviewed. Nurse visit note dated 01/04/2024 was reviewed. Patient was seen for postvoid residual for catheter removal. - EKG image interpreted by myself showed ventricular paced rhythm. Rate 99 bpm. - Laboratory workup interpreted by myself showed leukocytosis (WBC 12.91) with neutrophil predominance; thrombocytopenia (plt 106); stable electrolytes; ANTONELLA on CKD (Cr 2.17); elevated lipase (2.5); elevated troponin (22.9); elevated CK (496); normal TSH - Viral respiratory panel negative - CXR image reviewed by myself is negative for pneumonia, per my interpretation. Radiology did report a lateral right sided sixth rib deformity concerning for chronic etiology. - Xray pelvis negative for acute fracture. - CT head wo contrast negative for acute pathology - CTA head/neck negative for obvious stroke - CT cervical spine wo contrast negative for acute traumatic injury - CT lumbar spine wo contrast negative for acute traumatic injury - UA showed evidence of infection. Given 2g IV rocephin - Given 2L NS in ER. - Family expresses concern that the patient is fully dependent on others for his basic ADLs. Daughter inquires about potential rehab placement. At this point, I do feel the patient would benefit for inpatient admission for his generalized weakness and acute UTI and assessment with PT/OT. - Discussion was had with director case about patient's case and need for admission - Hospitalist consulted for admission - Patient admitted to [facility] for further evaluation and management. ASSESSMENT AND PLAN: Diagnosis: Generalized weakness; acute UTI; thrombocytopenia; ANTONELLA on CKD; elevated troponin; fall; leukocytosis Plan: Admit Past Med/Surg History Problem List (Updated 11/10/24 @ 18:40 by Rosalinda Schwartz MD) Leukocytosis (Acute) Elevated troponin (Acute) Fall (Acute) Acute kidney injury superimposed on chronic kidney disease (Acute) Acute UTI (urinary tract infection) (Acute) Generalized weakness (Acute) Scrotal swelling Epididymitis Arthritis (Acute) Heart disease (Acute 08/04/12) Postural imbalance (Acute) Thoracic outlet syndrome (Acute) Tremor (Acute) Anxiety Hypertension Hyperlipidemia GERD (gastroesophageal reflux disease) Parkinsons disease Urinary frequency (Acute) Urinary urgency (Acute) S/P deep brain stimulator placement Bilateral 01/08/19 Chest pain (Acute) Prostate cancer (Chronic 01/29/14) Medical History Elevated fasting glucose Radicular pain in right arm Low back pain Surgical History H/O brain surgery History of hip replacement History of repair of rotator cuff History of neck surgery History of back surgery Family History Mother Diabetes Father Diabetes Cardiac disorder Denies family history of Ovarian cancer Prostate cancer Myocardial infarction Breast cancer Social History Smoking Status: Former smoker Tobacco Type: Cigarettes packs per day: 42; Hx Alcohol Use: No Hx Substance Use: No Beliefs That Will Affect Care: None marital status: Current Living Situation: Spouse current occupational status: retired Feels Safe at Home: Yes Dental Care, Regularly: Yes Seatbelt Use: always Do you think of yourself as: straight/heterosexual Allergies Allergies Allergy/AdvReac Type Severity Reaction Status Date / Time hydrocodone Allergy Intermediate ITCHING Verified 04/19/23 13:02 meperidine AdvReac Mild KNOT AT Verified 04/19/23 13:02 INJECTION SITE WITH IM ADMINISTRATION sulfamethoxazole AdvReac Hallucinati Verified 04/19/23 13:02 [From Bactrim] ng trimethoprim [From Bactrim] AdvReac Hallucinati Verified 04/19/23 13:02 ng Home Meds Home Medications Medication Instructions Recorded Confirmed multivitamin (Daily Multi-Vitamin 1 tab PO DAILY 01/10/19 11/10/24 tablet) aspirin 81 mg tablet,delayed 81 mg PO DAILY 02/02/19 11/10/24 release dexlansoprazole 60 mg 60 mg PO QAM 11/10/24 11/10/24 capsule,biphase delayed release losartan 25 mg tablet 25 mg PO QAM 11/10/24 11/10/24 rosuvastatin 40 mg tablet 40 mg PO DAILY 11/10/24 11/10/24 Previous Rx's Medication Instructions Recorded tamsulosin 0.4 mg capsule 0.4 mg PO BID 90 days #180 caps 01/11/22 Results & Data (ED) Vital Signs Vital Signs - 24 hr 11/10/24 12:40 11/10/24 12:50 11/10/24 12:52 Temperature 36.7 C Temperature Source Oral Pulse Rate 87 88 Pulse Rate [Apical] Respiratory Rate 14 Respiratory Effort / Characteristics Non-Labored Spontaneous Respiratory Depth Normal Respiratory Pattern Regular Blood Pressure 118/45 L Blood Pressure [Left Arm] Blood Pressure Mean 69 Blood Pressure Mean [Left Arm] Blood Pressure Position Semi-fowlers Blood Pressure Position [Left Arm] Pulse Oximetry 97 97 Oxygen Delivery Method Room Air Room Air Sepsis Recent Fever Within 48 Hours No Sepsis New/Unexplained Change in Mental Status No Sepsis Action Taken by Nursing No Action Required 11/10/24 13:57 11/10/24 15:00 11/10/24 15:23 Temperature Temperature Source Pulse Rate Pulse Rate [Apical] 88 93 H Respiratory Rate 20 18 Respiratory Effort / Characteristics Non-Labored Spontaneous Respiratory Depth Normal Normal Respiratory Pattern Regular Blood Pressure Blood Pressure [Left Arm] 110/50 L 111/58 L Blood Pressure Mean Blood Pressure Mean [Left Arm] 70 75 Blood Pressure Position Blood Pressure Position [Left Arm] Semi-fowlers Semi-fowlers Pulse Oximetry 98 97 97 Oxygen Delivery Method Room Air Room Air Room Air Sepsis Recent Fever Within 48 Hours Sepsis New/Unexplained Change in Mental Status Sepsis Action Taken by Nursing 11/10/24 17:08 Temperature 36.9 C Temperature Source Oral Pulse Rate Pulse Rate [Apical] 104 H Respiratory Rate 20 Respiratory Effort / Characteristics Non-Labored Spontaneous Respiratory Depth Normal Respiratory Pattern Regular Blood Pressure Blood Pressure [Left Arm] 136/62 Blood Pressure Mean Blood Pressure Mean [Left Arm] 86 Blood Pressure Position Blood Pressure Position [Left Arm] Semi-fowlers Pulse Oximetry 94 Oxygen Delivery Method Room Air Sepsis Recent Fever Within 48 Hours Sepsis New/Unexplained Change in Mental Status Sepsis Action Taken by Nursing Laboratory Data 11/10/24 12:48 11/10/24 12:48 Lab Results 11/10/24 11/10/24 11/10/24 Range/Units 12:48 16:06 16:10 WBC 12.91 H (4.8-10.8) K/ul RBC 4.17 L (4.70-6.10) M/uL Hgb 12.3 L (14.0-18.0) g/dl Hct 37.0 L (42.0-52.0) % MCV 88.7 (80.0-100.0) fL MCH 29.5 (25.0-34.0) pg MCHC 33.2 (32.0-36.0) g/dL RDW Std Deviation 46.4 H (36.4-46.3) fL RDW Coeff of Miguel 14.3 (11.5-14.5) % Plt Count 106 L (130-400) K/uL MPV 11.3 (9.4-12.4) fL Immature Gran % (Auto) 0.5 % Neut % (Auto) 90.2 % Lymph % (Auto) 2.4 % [place] % (Auto) 6.7 % Eos % (Auto) 0.0 % Baso % (Auto) 0.2 % Neut # (Auto) 11.65 H (1.40-6.50) K/uL Lymph # (Auto) 0.31 L (1.20-3.40) K/uL [place] # (Auto) 0.87 H (0.11-0.59) K/uL Eos # (Auto) 0.00 (0.00-0.50) K/uL Baso # (Auto) 0.02 (0.00-0.20) K/uL Immature Gran # (Auto) 0.06 (0.01-0.20) K/uL Sodium 141 (136-145) mmol/L Potassium 3.8 (3.5-5.1) mmol/L Chloride 106 (98-107) mmol/L Carbon Dioxide 26 (21-32) mmol/L Anion Gap 9 (3-11) BUN 33 H (6-23) mg/dl Creatinine 2.17 H (0.6-1.4) mg/dl Est Cr Clr Drug Dosing 26.6 ml/min eGFR 30.98 BUN/Creatinine Ratio 15.2 (10-20) Glucose 134 H (70-99(Fasting)) mg/dl Lactate 2.5 H* (0.4-2.0) mmol/L Calcium 9.4 (8.6-10.3) mg/dl Magnesium 2.3 (1.7-2.4) mg/dl Total Bilirubin 1.9 H (0.2-1.0) mg/dl AST 26 (13-39) U/L ALT 13 (7-52) U/L Alkaline Phosphatase 63 (34-104) U/L Total Creatine Kinase 496 H (30-223) U/L Troponin I High Sens 22.9 H (0-20) pg/ml Total Protein 7.2 (6.0-8.3) gm/dl Albumin 3.8 (3.4-5.0) gm/dl Globulin 3.4 (2.5-4.0) gm/dl Albumin/Globulin Ratio 1.1 (0.9-2) TSH 1.600 (0.300-4.500) uIu/ml Urine Color Urine Appearance (Clear) Urine pH (4.5-7.5) Ur Specific [place] (1.000-1.030) Urine Protein (Negative) Urine Glucose (UA) (Negative) Urine Ketones (Negative) Urine Blood (Negative) Urine Nitrite (Negative) Urine Bilirubin (Negative) Urine Urobilinogen (Negative) Ur Leukocyte Esterase (Negative) Urine WBC (Auto) (0-5) /hpf Urine RBC (Auto) (0-2) /hpf U Hyaline Cast (Auto) (0-2) /lpf U Epithel Cells (Auto) (0-2) /hpf Urine Bacteria (Auto) (None Seen) Hyaline Casts (None Presnt) /lpf Urine Comment Adenovirus (PCR) Not Detected (NotDetected) B. pertussis DNA (PCR) Not Detected (NotDetected) B.parapertussis DNA PCR Not Detected (NotDetected) C. pneumoniae DNA (PCR) Not Detected (NotDetected) Coronavirus OC43 (PCR) Not Detected (NotDetected) Coronavirus HKU1 (PCR) Not Detected (NotDetected) Coronavirus 229E (PCR) Not Detected (NotDetected) SARS-CoV-2 (PCR) Not Detected (NotDetected) Coronavirus NL63 (PCR) Not Detected (NotDetected) Human Metapneumovir PCR Not Detected (NotDetected) Influenza Type A (PCR) Not Detected (NotDetected) Influenza Type B (PCR) Not Detected (NotDetected) M. pneumoniae (PCR) Not Detected (NotDetected) Parainfluenza 1 (PCR) Not Detected (NotDetected) Parainfluenza 2 (PCR) Not Detected (NotDetected) Parainfluenza 3 (PCR) Not Detected (NotDetected) Parainfluenza 4 (PCR) Not Detected (NotDetected) RSV (PCR) Not Detected (NotDetected) Entero/Rhino (PCR) Not Detected (NotDetected) 11/10/24 Range/Units 17:05 WBC (4.8-10.8) K/ul RBC (4.70-6.10) M/uL Hgb (14.0-18.0) g/dl Hct (42.0-52.0) % MCV (80.0-100.0) fL MCH (25.0-34.0) pg MCHC (32.0-36.0) g/dL RDW Std Deviation (36.4-46.3) fL RDW Coeff of Miguel (11.5-14.5) % Plt Count (130-400) K/uL MPV (9.4-12.4) fL Immature Gran % (Auto) % Neut % (Auto) % Lymph % (Auto) % [place] % (Auto) % Eos % (Auto) % Baso % (Auto) % Neut # (Auto) (1.40-6.50) K/uL Lymph # (Auto) (1.20-3.40) K/uL [place] # (Auto) (0.11-0.59) K/uL Eos # (Auto) (0.00-0.50) K/uL Baso # (Auto) (0.00-0.20) K/uL Immature Gran # (Auto) (0.01-0.20) K/uL Sodium (136-145) mmol/L Potassium (3.5-5.1) mmol/L Chloride (98-107) mmol/L Carbon Dioxide (21-32) mmol/L Anion Gap (3-11) BUN (6-23) mg/dl Creatinine (0.6-1.4) mg/dl Est Cr Clr Drug Dosing ml/min eGFR BUN/Creatinine Ratio (10-20) Glucose (70-99(Fasting)) mg/dl Lactate (0.4-2.0) mmol/L Calcium (8.6-10.3) mg/dl Magnesium (1.7-2.4) mg/dl Total Bilirubin (0.2-1.0) mg/dl AST (13-39) U/L ALT (7-52) U/L Alkaline Phosphatase (34-104) U/L Total Creatine Kinase (30-223) U/L Troponin I High Sens (0-20) pg/ml Total Protein (6.0-8.3) gm/dl Albumin (3.4-5.0) gm/dl Globulin (2.5-4.0) gm/dl Albumin/Globulin Ratio (0.9-2) TSH (0.300-4.500) uIu/ml Urine Color Yellow Urine Appearance Cloudy A (Clear) Urine pH 5.5 (4.5-7.5) Ur Specific [place] 1.031 H (1.000-1.030) Urine Protein 2+ H (Negative) Urine Glucose (UA) Negative (Negative) Urine Ketones Trace H (Negative) Urine Blood 3+ H (Negative) Urine Nitrite Negative (Negative) Urine Bilirubin Negative (Negative) Urine Urobilinogen Negative (Negative) Ur Leukocyte Esterase 2+ H (Negative) Urine WBC (Auto) >50 H (0-5) /hpf Urine RBC (Auto) 3-5 H (0-2) /hpf U Hyaline Cast (Auto) 11-20 H (0-2) /lpf U Epithel Cells (Auto) 0-2 (0-2) /hpf Urine Bacteria (Auto) 2+ H (None Seen) Hyaline Casts Present A (None Presnt) /lpf Urine Comment Adenovirus (PCR) (NotDetected) B. pertussis DNA (PCR) (NotDetected) B.parapertussis DNA PCR (NotDetected) C. pneumoniae DNA (PCR) (NotDetected) Coronavirus OC43 (PCR) (NotDetected) Coronavirus HKU1 (PCR) (NotDetected) Coronavirus 229E (PCR) (NotDetected) SARS-CoV-2 (PCR) (NotDetected) Coronavirus NL63 (PCR) (NotDetected) Human Metapneumovir PCR (NotDetected) Influenza Type A (PCR) (NotDetected) Influenza Type B (PCR) (NotDetected) M. pneumoniae (PCR) (NotDetected) Parainfluenza 1 (PCR) (NotDetected) Parainfluenza 2 (PCR) (NotDetected) Parainfluenza 3 (PCR) (NotDetected) Parainfluenza 4 (PCR) (NotDetected) RSV (PCR) (NotDetected) Entero/Rhino (PCR) (NotDetected) Administered Medications Sodium Chloride (Nss) 1,000 mls @ 999 mls/hr IV .Q1H1M ONE Stop: 11/10/24 19:03 Last Admin: 11/10/24 18:34 Dose: 999 mls/hr Documented By: BUSHRA Discontinued Medications Acetaminophen (Acetaminophen 1000 Mg/100 Ml Iv) Confirm Administered Dose 1,000 mg IV .STK-MED ONE Stop: 11/10/24 18:33 Last Admin: 11/10/24 18:36 Dose: Not Given Documented By: BUSHRA Sodium Chloride (Nss) 1,000 mls @ 999 mls/hr IV .Q1H1M ONE Stop: 11/10/24 16:47 Last Infusion: 11/10/24 17:54 Dose: Infused Documented By: Admin: 11/10/24 15:51 Dose: 999 mls/hr Documented By: CAILIN Ceftriaxone Sodium (Rocephin) 2,000 mg in 50 mls @ 100 mls/hr IV NOW STA Stop: 11/10/24 18:22 Last Infusion: 11/10/24 18:29 Dose: Infused Documented By: Admin: 11/10/24 18:00 Dose: 100 mls/hr Documented By: SYLVIA Ioversol (Optiray 320 125ml) 119 ml IV ONCE ONE Stop: 11/10/24 16:47 Last Admin: 11/10/24 16:46 Dose: 119 ml Documented By: IVETH Lidocaine (Lidocaine 5% 1 Patch) 1 patch TD NOW STA Stop: 11/10/24 18:22 Last Admin: 11/10/24 18:31 Dose: 1 patch Documented By: NRB Imaging Data Radiologist's Impression: Cervical Spine CT 11/10/24 15:23 CT cervical spine without IV contrast History: Trauma Comparison: None Technique: Using multidetector thin collimation helical acquisition technique, axial, coronal and sagittal CT images through the cervical spine were obtained without intravenous contrast. Dose reduction techniques were achieved by using automatic exposure control and/or adjustment of mA and/or kV according to patient size and/or use of iterative reconstruction technique. Findings: The cervical vertebrae are normally aligned. Straightened cervical lordosis. No acute fracture or subluxation. No prevertebral edema. ACDF changes seen at C5-C7. No abnormality of the paraspinous soft tissues. Impression: No acute fracture or traumatic subluxation. Electronically signed by James Thomas 11-10-2024 5:19 PM Chest X-Ray 11/10/24 15:23 Chest radiograph, one view History: Fall Comparison: December 08, 2015 Findings: Single AP view of the chest performed. The lungs appear emphysematous. No focal consolidation or pleural effusion. No pneumothorax. The cardiomediastinal silhouette is within normal limits. Normal pulmonary vascularity. No evidence for lymphadenopathy. No visualized bony or soft tissue abnormality. There is a right-sided rib deformity that appears likely chronic. Left chest wall battery pack with cemented device extending into the left side of the neck. Small to moderate hiatal hernia. Impression: No acute process. A lateral right-sided rib 6 deformity appears likely chronic, however recommend correlation with point tenderness. Hiatal hernia. Emphysema. Electronically signed by James Thomas 11-10-2024 4:[address] 11/10/24 15:23 CT head without contrast History: Trauma Comparison: None Technique: Using multidetector thin collimation helical acquisition technique, axial, coronal and sagittal CT images from the skull base to the vertex were obtained without intravenous contrast. Dose reduction techniques were achieved by using automatic exposure control and/or adjustment of mA and/or kV according to patient size and/or use of iterative reconstruction technique. Findings: No intracranial hemorrhage, mass-effect, or midline shift. The ventricles are proportionate to the cerebral sulci. The parada to white matter differentiation of the cerebral hemispheres is preserved. The basal cisterns are patent. The visualized paranasal sinuses are clear. Mastoid air cells are clear. Bilateral deep brain stimulator devices extending through the frontal bones, terminating near the subthalamic nuclei. Impression: No acute intracranial pathology. Electronically signed by James Thomas 11-10-2024 5:03 PM Head CTA 11/10/24 15:23 CT angiogram of the neck CT angiogram of the brain with contrast Provided History: Neuro deficit Comparison: None Technique: HEAD and NECK CTA: During rapid bolus intravenous injection of nonionic contrast material, axial images were obtained using thin collimation multidetector helical technique from the base of the neck through the of vertex of the head. This CT angiogram data was reconstructed at thin intervals with mild overlap. 3D reconstructions were obtained. The axial source images, multiplanar reformations, 3D reconstructions in both maximum intensity projection display and volume rendered models were reviewed. Dose reduction techniques were achieved by using automatic exposure control and/or adjustment of mA and/or kV according to patient size and/or use of iterative reconstruction technique. Findings: Head CTA demonstrates no aneurysm or stenosis of the major intracranial arteries. Neck CTA demonstrates atherosclerotic calcification of the carotid bulbs bilaterally extending into the proximal ICA. There is a short segment of mild, less than 25% stenosis of the proximal right ICA. At the proximal left ICA, there is a short segment of approximately 35 to 45% stenosis. No large vessel occlusion. Widely patent distal internal carotid arteries in the neck. The origins of the great vessels from the aortic arch are patent. No mass is noted within the visualized portions of the cervical soft tissues or lung apices. Impression: 1. Head CTA demonstrates no aneurysm or stenosis of the major intracranial arteries, 2. Neck CTA demonstrates no large vessel occlusion. Atherosclerotic disease of the carotid bulbs, resulting in stenosis at the proximal ICA, as above. Electronically signed by James Thomas 11-10-2024 5:19 PM Neck CTA 11/10/24 15:23 CT angiogram of the neck CT angiogram of the brain with contrast Provided History: Neuro deficit Comparison: None Technique: HEAD and NECK CTA: During rapid bolus intravenous injection of nonionic contrast material, axial images were obtained using thin collimation multidetector helical technique from the base of the neck through the of vertex of the head. This CT angiogram data was reconstructed at thin intervals with mild overlap. 3D reconstructions were obtained. The axial source images, multiplanar reformations, 3D reconstructions in both maximum intensity projection display and volume rendered models were reviewed. Dose reduction techniques were achieved by using automatic exposure control and/or adjustment of mA and/or kV according to patient size and/or use of iterative reconstruction technique. Findings: Head CTA demonstrates no aneurysm or stenosis of the major intracranial arteries. Neck CTA demonstrates atherosclerotic calcification of the carotid bulbs bilaterally extending into the proximal ICA. There is a short segment of mild, less than 25% stenosis of the proximal right ICA. At the proximal left ICA, there is a short segment of approximately 35 to 45% stenosis. No large vessel occlusion. Widely patent distal internal carotid arteries in the neck. The origins of the great vessels from the aortic arch are patent. No mass is noted within the visualized portions of the cervical soft tissues or lung apices. Impression: 1. Head CTA demonstrates no aneurysm or stenosis of the major intracranial arteries, 2. Neck CTA demonstrates no large vessel occlusion. Atherosclerotic disease of the carotid bulbs, resulting in stenosis at the proximal ICA, as above. Electronically signed by James Thomas 11-10-2024 5:19 PM Pelvis X-Ray 11/10/24 15:23 HISTORY: Trauma due to fall. TECHNIQUE: AP radiographs of the pelvis, 2 views. COMPARISON: None. FINDINGS: Right hip arthroplasty with the femoral stem incompletely imaged. Multiple cerclage wires about the proximal diaphysis of the femur. No acute periprosthetic fracture is identified. The right hip arthroplasty appears appropriately aligned. Left hip arthroplasty in appropriate alignment. No periprosthetic fracture or lucency. There is significant heterotopic ossification about the left hip. Radiotherapy seeds of about the prostate. The pelvic and obturator rings appear intact. There is no widening of the pubic symphysis or sacroiliac joints. Enthesophyte formation about the iliac crests. Degenerative changes of the lower lumbar spine. IMPRESSION: * No acute osseous abnormality. * Bilateral hip arthroplasties without obvious complication. * Extensive heterotopic ossification about the left hip may predispose to impingement. * Additional findings as above. Electronically signed by Raz Woodson 11-10-2024 4:[address] 11/10/24 15:24 CT LUMBAR SPINE WITHOUT CONTRAST: HISTORY: Trauma TECHNIQUE: Noncontrast CT examination of the lumbar spine is performed. Coronal and sagittal reformats were created. COMPARISON: FINDINGS: LUMBAR SPINE: There is no significant vertebral body height loss. No acute traumatic fracture identified. There is no significant spondylolisthesis. Usual lumbar lordosis is preserved. Multilevel degenerative changes characterized by disc space loss, broad based disc bulge/herniations with endplate changes of the vertebral bodies with small marginal osteophytes as well as bilateral facet hypertrophy and thickening of the ligamentum flavum resulting in crowding of the subarticular recesses and narrowing of neural foramina worst at L4-S1. IMPRESSION: No acute traumatic fracture of the lumbar spine. Multilevel degenerative changes as above Electronically signed by Fernandez Kelley 11-10-2024 5:34 PM Discharge Plan Visit Data Chief Complaint: Fall ED Provider: Rosalinda Schwartz Discharge Problem: Generalized weakness, Acute UTI (urinary tract infection), Acute kidney injury superimposed on chronic kidney disease, Fall, Elevated troponin, Leukocytosis Condition: Fair Forms Stand Alone Forms: My [facility] [place] Prescriptions Prescriptions: No Action tamsulosin 0.4 mg capsule 0.4 mg PO BID 90 Days Qty: 180 1RF multivitamin [Daily Multi-Vitamin] tablet 1 tab PO DAILY aspirin 81 mg tablet,delayed release (DR/EC) 81 mg PO DAILY rosuvastatin 40 mg tablet 40 mg PO DAILY losartan 25 mg tablet 25 mg PO QAM dexlansoprazole 60 mg capsule,biphase delayed releas 60 mg PO QAM Referrals Referrals: [facility] [Primary Care Provider] -
[2024-11-10 15:36] LABS: Hematocrit (blood only) 37.0 % (42.0-52.0); Hemoglobin 12.3 g/dl (14.0-18.0); Mean Corpuscular Hemoglobin 29.5 pg (25.0-34.0); Mean Corpuscular Volume 88.7 fL (80.0-100.0); Platelet Count 106 K/uL (130-400); RDW Standard Deviation 46.4 fL (36.4-46.3); Red Blood Count 4.17 M/uL (4.70-6.10); White Blood Count 12.91 K/ul (4.8-10.8)
[2024-11-10 15:44] LABS: Alanine Aminotransferase 13.0 U/L (7-52); Albumin Globulin Ratio 1.1 (0.9-2); Alkaline Phosphatase 63.0 U/L (34-104); Anion Gap 9.0 (3-11); Bilirubin,Total 1.9 mg/dl (0.2-1.0); Blood Urea Nitrogen 33.0 mg/dl (6-23); Calcium 9.4 mg/dl (8.6-10.3); Carbon Dioxide 26.0 mmol/L (21-32); Chloride 106.0 mmol/L (98-107); Creatine Kinase 496.0 U/L (30-223); Creatinine Clr Calc Pharmacy 26.6 ml/min; Globulin 3.4 gm/dl (2.5-4.0); Glucose 134.0 mg/dl (70-99(Fasting)); Magnesium 2.3 mg/dl (1.7-2.4); Potassium 3.8 mmol/L (3.5-5.1); Sodium 141.0 mmol/L (136-145); Total Protein 7.2 gm/dl (6.0-8.3)
[2024-11-10] MEDS: SODIUM CHLORIDE 0.9% 1,000 ML IV ONE ×2 (15:51→18:34)
[2024-11-10 15:59] LABS: Immature Granulocytes # (auto) 0.06 K/uL (0.01-0.20); Immature Granulocytes % (auto) 0.5 %; Thyroid Stimulating Hormone 1.6 uIu/ml (0.300-4.500)
--- NOTE | 2024-11-10 16:02 | XRay Report ---
HISTORY: Trauma due to fall. TECHNIQUE: AP radiographs of the pelvis, 2 views. COMPARISON: None. FINDINGS: Right hip arthroplasty with the femoral stem incompletely imaged. Multiple cerclage wires about the proximal diaphysis of the femur. No acute periprosthetic fracture is identified. The right hip arthroplasty appears appropriately aligned. Left hip arthroplasty in appropriate alignment. No periprosthetic fracture or lucency. There is significant heterotopic ossification about the left hip. Radiotherapy seeds of about the prostate. The pelvic and obturator rings appear intact. There is no widening of the pubic symphysis or sacroiliac joints. Enthesophyte formation about the iliac crests. Degenerative changes of the lower lumbar spine. IMPRESSION: * No acute osseous abnormality. * Bilateral hip arthroplasties without obvious complication. * Extensive heterotopic ossification about the left hip may predispose to impingement. * Additional findings as above. Electronically signed by Raz Woodson 11-10-2024 4:02 PM
--- NOTE | 2024-11-10 16:05 | XRay Report ---
Chest radiograph, one view History: Fall Comparison: December 08, 2015 Findings: Single AP view of the chest performed. The lungs appear emphysematous. No focal consolidation or pleural effusion. No pneumothorax. The cardiomediastinal silhouette is within normal limits. Normal pulmonary vascularity. No evidence for lymphadenopathy. No visualized bony or soft tissue abnormality. There is a right-sided rib deformity that appears likely chronic. Left chest wall battery pack with cemented device extending into the left side of the neck. Small to moderate hiatal hernia. Impression: No acute process. A lateral right-sided rib 6 deformity appears likely chronic, however recommend correlation with point tenderness. Hiatal hernia. Emphysema. Electronically signed by James Thomas 11-10-2024 4:03 PM
[2024-11-10] MEDS: OPTIRAY 320 125ml IV ONE (16:46)
--- NOTE | 2024-11-10 17:03 | CT Scan Report ---
CT head without contrast History: Trauma Comparison: None Technique: Using multidetector thin collimation helical acquisition technique, axial, coronal and sagittal CT images from the skull base to the vertex were obtained without intravenous contrast. Dose reduction techniques were achieved by using automatic exposure control and/or adjustment of mA and/or kV according to patient size and/or use of iterative reconstruction technique. Findings: No intracranial hemorrhage, mass-effect, or midline shift. The ventricles are proportionate to the cerebral sulci. The parada to white matter differentiation of the cerebral hemispheres is preserved. The basal cisterns are patent. The visualized paranasal sinuses are clear. Mastoid air cells are clear. Bilateral deep brain stimulator devices extending through the frontal bones, terminating near the subthalamic nuclei. Impression: No acute intracranial pathology. Electronically signed by James Thomas 11-10-2024 5:03 PM
[2024-11-10 17:09] LABS: Chlamydia pneumoniae PCR Not Detected (NotDetected); Coronavirus 229E PCR Not Detected (NotDetected); Coronavirus CoV-2 (COVID19)PCR Not Detected (NotDetected); Coronavirus HKU1 PCR Not Detected (NotDetected); Coronavirus NL63 PCR Not Detected (NotDetected); Coronavirus OC43PCR Not Detected (NotDetected); Human Metapneumovirus PCR Not Detected (NotDetected); Parainfluenza Virus 1 PCR Not Detected (NotDetected); Parainfluenza Virus 2 PCR Not Detected (NotDetected); Parainfluenza Virus 3 PCR Not Detected (NotDetected); Parainfluenza Virus 4 PCR Not Detected (NotDetected); Respiratory Syncytial VirusPCR Not Detected (NotDetected); Rhinovirus/Enterovirus PCR Not Detected (NotDetected)
--- NOTE | 2024-11-10 17:19 | CT Scan Report ---
CT angiogram of the neck CT angiogram of the brain with contrast Provided History: Neuro deficit Comparison: None Technique: HEAD and NECK CTA: During rapid bolus intravenous injection of nonionic contrast material, axial images were obtained using thin collimation multidetector helical technique from the base of the neck through the of vertex of the head. This CT angiogram data was reconstructed at thin intervals with mild overlap. 3D reconstructions were obtained. The axial source images, multiplanar reformations, 3D reconstructions in both maximum intensity projection display and volume rendered models were reviewed. Dose reduction techniques were achieved by using automatic exposure control and/or adjustment of mA and/or kV according to patient size and/or use of iterative reconstruction technique. Findings: Head CTA demonstrates no aneurysm or stenosis of the major intracranial arteries. Neck CTA demonstrates atherosclerotic calcification of the carotid bulbs bilaterally extending into the proximal ICA. There is a short segment of mild, less than 25% stenosis of the proximal right ICA. At the proximal left ICA, there is a short segment of approximately 35 to 45% stenosis. No large vessel occlusion. Widely patent distal internal carotid arteries in the neck. The origins of the great vessels from the aortic arch are patent. No mass is noted within the visualized portions of the cervical soft tissues or lung apices. Impression: 1. Head CTA demonstrates no aneurysm or stenosis of the major intracranial arteries, 2. Neck CTA demonstrates no large vessel occlusion. Atherosclerotic disease of the carotid bulbs, resulting in stenosis at the proximal ICA, as above. Electronically signed by James Thomas 11-10-2024 5:19 PM
--- NOTE | 2024-11-10 17:19 | CT Scan Report ---
CT cervical spine without IV contrast History: Trauma Comparison: None Technique: Using multidetector thin collimation helical acquisition technique, axial, coronal and sagittal CT images through the cervical spine were obtained without intravenous contrast. Dose reduction techniques were achieved by using automatic exposure control and/or adjustment of mA and/or kV according to patient size and/or use of iterative reconstruction technique. Findings: The cervical vertebrae are normally aligned. Straightened cervical lordosis. No acute fracture or subluxation. No prevertebral edema. ACDF changes seen at C5-C7. No abnormality of the paraspinous soft tissues. Impression: No acute fracture or traumatic subluxation. Electronically signed by James Thomas 11-10-2024 5:19 PM
--- NOTE | 2024-11-10 17:34 | CT Scan Report ---
CT LUMBAR SPINE WITHOUT CONTRAST: HISTORY: Trauma TECHNIQUE: Noncontrast CT examination of the lumbar spine is performed. Coronal and sagittal reformats were created. COMPARISON: FINDINGS: LUMBAR SPINE: There is no significant vertebral body height loss. No acute traumatic fracture identified. There is no significant spondylolisthesis. Usual lumbar lordosis is preserved. Multilevel degenerative changes characterized by disc space loss, broad based disc bulge/herniations with endplate changes of the vertebral bodies with small marginal osteophytes as well as bilateral facet hypertrophy and thickening of the ligamentum flavum resulting in crowding of the subarticular recesses and narrowing of neural foramina worst at L4-S1. IMPRESSION: No acute traumatic fracture of the lumbar spine. Multilevel degenerative changes as above Electronically signed by Fernandez Kelley 11-10-2024 5:34 PM
[2024-11-10 17:45] LABS: Appearance Urine Cloudy (Clear); Bacteria Urine Automated 2+ (None Seen); Epithelial Cell Urine Auto 0-2 /hpf (0-2); Glucose Urine UA Negative (Negative); WBC Urine Automated >50 /hpf (0-5)
[2024-11-10] MEDS: cefTRIAXone SODIUM 2,000 MG/50 ML BAG IV STA (18:00)
--- NOTE | 2024-11-10 18:02 | History & Physical Report ---
Date of Service November 10, 2024 Assessment & Plan (1) Sepsis: (2) Acute UTI (urinary tract infection): (3) Acute kidney injury superimposed on chronic kidney disease: (4) Fall: (5) Leukocytosis: (6) Elevated troponin: (7) Urinary frequency: (8) Parkinsons disease: (9) GERD (gastroesophageal reflux disease): (10) Hyperlipidemia: (11) Hypertension: Plan #Sepsis, Suspected UTI #Fall, Ambulatory Dysfunction, mild elevation CK/rhabdo Admit med w/ telemetry to ensure no alternative reason for fall however suspected w/ hx parkisons' incontience at baseline and pad use could be contributing. Prior ECHO w/ acceptable EF, mod aortic insufficiency, elevated RVSP but IVC not dilated/does not appear overloaded at this time. Additional 1L NSS bolus for elevated lactic, monitor repeat lactic Ceftriaxone IV daily F/u urine culture Monitor bladder scan, continue flomax BID, check PSA w/ AM labs Hold losartan, statin Fall precautions PT/OT consults Monitor labs in AM #ANTONELLA on CKD- Cr above baseline 2.17, likely in setting of poor PO intak e/dehydration and ongoing losartan use Home losartan on HOLD, IVF as above Renal dose meds BMP in AM #Parkinsons -- has DBS in place, daughter bringing in supplies. Possible underlying dementia per daughter w/ hallucinations but was alert/oriented for myself during exam Fall precautions, PT/OT, tx of above #Urinary incontinence/BPH at baseline -- tx UTI as above, continue flomax BID. Monitor w/ bladder scan for tavares if needed. ?hx prostate ca, will add PSA to am labs for surveillance #HTN- on losartan as above, BP 136/62 and holding losartan w/ ANTONELLA. Monitor/resume as able Minimal troponin elevation 22.9 in setting sepsis/infection and suspected demand ischemia but will trend/monitor on telemetry Further testing if occurs #GERD- continue PPI, aspiration precautions DVT proph: Heparin SQ, avoided lovenox w/ ANTONELLA Full code Dispo: med w/ telemetry, PT/OT and likely need for SNF/PCH at [facility] as discussed w/ daughter History of Present Illness Chief Complaint: fall, weakness Primary Care Provider: [facility] 73yo male presented after falling out of bed this morning and not being able to get up. Increased weakness over the past 48 hours. Wet the bed when trying to get out of bed. UA appears infected. CT head negative CTA head/neck w/ some plaque but no acute CVA Is on 81mg daily. Patient reports falling when attempting to get out of bed early this morning to urinate/increased frequency, when he fell down onto his back and was unable to get up. Reports increased weakness over the past 48 hours, difficulty caring for himself. Was not down long as daughter heard him fall and attempted to get him up. CK minimal elevation 496. Daughter and her significant other do most of his care except bathing and co ncerns for needing additional help/placement moving forward. Daughter reports incontinence issues at baseline/[facility]. No fever/chills, does have tremor at baseline, hx parkinsons'. DBS in place since ~[id number]. Does have some left sided pain, back pain, takes tylenol. Would like a dose. Hallucinating on/off over past year but is alert/oriented to person/place Dominic Wetzel, year 2024, month October while in room. WBC elevated 12.9k Cr 2.17 with baseline ~1.2. No CP, minimal trop elevation on high sensitivity testing. Currently reporting being hungry, would like something to eat. Will plan for tx UTI/monitoring cultures, PT/OT, possible rehab vs SNF vs placement. CM to follow for ongoing needs. ER Course: Ceftriaxone 2gm IV x 1, 1L NSS. Additional 1L NSS ordered given Lactic 2.5 for sepsis protocol. Full code as discussed w/ patient and daughter at bedside. Questions/concerns addressed a this time. Allergies Allergy/AdvReac Type Severity Reaction Status Date / Time hydrocodone Allergy Intermediate ITCHING Verified 04/19/23 13:02 meperidine AdvReac Mild KNOT AT Verified 04/19/23 13:02 INJECTION SITE WITH IM ADMINISTRATION sulfamethoxazole AdvReac Hallucinati Verified 04/19/23 13:02 [From Bactrim] ng trimethoprim [From Bactrim] AdvReac Hallucinati Verified 04/19/23 13:02 ng Home Medications Medication Instructions Recorded Confirmed Type multivitamin (Daily Multi-Vitamin 1 tab PO DAILY 01/10/19 11/10/24 History tablet) aspirin 81 mg tablet,delayed 81 mg PO DAILY 02/02/19 11/10/24 History release tamsulosin 0.4 mg capsule 0.4 mg PO BID 90 days #180 caps 01/11/22 11/10/24 Rx dexlansoprazole 60 mg 60 mg PO QAM 11/10/24 11/10/24 History capsule,biphase delayed release losartan 25 mg tablet 25 mg PO QAM 11/10/24 11/10/24 History rosuvastatin 40 mg tablet 40 mg PO DAILY 11/10/24 11/10/24 History Past Med/Surg History Problem List (Updated 11/10/24 @ 18:44 by Alicia Cancino PA-C) Sepsis Leukocytosis (Acute) Elevated troponin (Acute) Fall (Acute) Acute kidney injury superimposed on chronic kidney disease (Acute) Acute UTI (urinary tract infection) (Acute) Generalized weakness (Acute) Scrotal swelling Epididymitis Arthritis (Acute) Heart disease (Acute 08/04/12) Postural imbalance (Acute) Thoracic outlet syndrome (Acute) Tremor (Acute) Anxiety Hypertension Hyperlipidemia GERD (gastroesophageal reflux disease) Parkinsons disease Urinary frequency (Acute) Urinary urgency (Acute) S/P deep brain stimulator placement Bilateral 01/08/19 Chest pain (Acute) Prostate cancer (Chronic 01/29/14) Medical History Elevated fasting glucose Radicular pain in right arm Low back pain Surgical History H/O brain surgery History of hip replacement History of repair of rotator cuff History of neck surgery History of back surgery Family History Mother Diabetes Father Diabetes Cardiac disorder Denies family history of Ovarian cancer Prostate cancer Myocardial infarction Breast cancer Social History Smoking Status: Former smoker Tobacco Type: Cigarettes packs per day: 42; Hx Alcohol Use: No Hx Substance Use: No Beliefs That Will Affect Care: None marital status: Current Living Situation: Spouse current occupational status: retired Feels Safe at Home: Yes Dental Care, Regularly: Yes Seatbelt Use: always Do you think of yourself as: straight/heterosexual Review of Systems Review of Systems: All systems reviewed & are unremarkable except as noted in HPI & below Physical Exam Physical Exam: General: 73yo male resting in bed, daughter at bedside, NAD, tremor at baseline HEENT: mm slightly dry, trachea midline, normocephalic/atraumatic Chest: DBS to L chest Resp: even/unlabored, no overt wheezing/rales, on room air CV: regular, faint systolic murmur, NO pitting edema, pulses present, calves nontender GI: +BS, slight distension but nontender, no guarding, slight suprapubic fullness : no tavares MSK/Neuro/Psych: able to answer questions appropriately, not confused, alert to person/place/time/event, tremor at baseline, generalized weakness but nonfocal Skin: scabs present to LE/no drainage or cellulitic appearance Results & Data Results & Data Vital Signs (Past 12 Hours) Vital Signs Temp Pulse Pulse Resp BP BP Pulse Ox 11/10/24 17:08 36.9 C 104 H 20 136/62 94 11/10/24 15:23 97 11/10/24 15:00 93 H 18 111/58 L 97 11/10/24 13:57 88 20 110/50 L 98 11/10/24 12:52 88 11/10/24 12:50 97 11/10/24 12:40 36.7 C 87 14 118/45 L 97 O2 Del Method 11/10/24 17:08 Room Air 11/10/24 15:23 Room Air 11/10/24 15:00 Room Air 11/10/24 13:57 Room Air 11/10/24 12:52 11/10/24 12:50 Room Air 11/10/24 12:40 Room Air Laboratory Results 11/10/24 11/10/24 11/10/24 Range/Units 17:05 16:10 16:06 WBC (4.8-10.8) K/ul RBC (4.70-6.10) M/uL Hgb (14.0-18.0) g/dl Hct (42.0-52.0) % MCV (80.0-100.0) fL MCH (25.0-34.0) pg MCHC (32.0-36.0) g/dL RDW Std Deviation (36.4-46.3) fL RDW Coeff of Miguel (11.5-14.5) % Plt Count (130-400) K/uL MPV (9.4-12.4) fL Immature Gran % (Auto) % Neut % (Auto) % Lymph % (Auto) % [place] % (Auto) % Eos % (Auto) % Baso % (Auto) % Neut # (Auto) (1.40-6.50) K/uL Lymph # (Auto) (1.20-3.40) K/uL [place] # (Auto) (0.11-0.59) K/uL Eos # (Auto) (0.00-0.50) K/uL Baso # (Auto) (0.00-0.20) K/uL Immature Gran # (Auto) (0.01-0.20) K/uL Sodium (136-145) mmol/L Potassium (3.5-5.1) mmol/L Chloride (98-107) mmol/L Carbon Dioxide (21-32) mmol/L Anion Gap (3-11) BUN (6-23) mg/dl Creatinine (0.6-1.4) mg/dl Est Cr Clr Drug Dosing ml/min eGFR BUN/Creatinine Ratio (10-20) Glucose (70-99(Fasting)) mg/dl Lactate 2.5 H* (0.4-2.0) mmol/L Calcium (8.6-10.3) mg/dl Magnesium (1.7-2.4) mg/dl Total Bilirubin (0.2-1.0) mg/dl AST (13-39) U/L ALT (7-52) U/L Alkaline Phosphatase (34-104) U/L Total Creatine Kinase (30-223) U/L Troponin I High Sens (0-20) pg/ml Total Protein (6.0-8.3) gm/dl Albumin (3.4-5.0) gm/dl Globulin (2.5-4.0) gm/dl Albumin/Globulin Ratio (0.9-2) TSH (0.300-4.500) uIu/ml Urine Color Yellow Urine Appearance Cloudy A (Clear) Urine pH 5.5 (4.5-7.5) Ur Specific [place]iller 1.031 H (1.000-1.030) Urine Protein 2+ H (Negative) Urine Glucose (UA) Negative (Negative) Urine Ketones Trace H (Negative) Urine Blood 3+ H (Negative) Urine Nitrite Negative (Negative) Urine Bilirubin Negative (Negative) Urine Urobilinogen Negative (Negative) Ur Leukocyte Esterase 2+ H (Negative) Urine WBC (Auto) >50 H (0-5) /hpf Urine RBC (Auto) 3-5 H (0-2) /hpf U Hyaline Cast (Auto) 11-20 H (0-2) /lpf U Epithel Cells (Auto) 0-2 (0-2) /hpf Urine Bacteria (Auto) 2+ H (None Seen) Hyaline Casts Present A (None Presnt) /lpf Urine Comment Adenovirus (PCR) Not Detected (NotDetected) B. pertussis DNA (PCR) Not Detected (NotDetected) B.parapertussis DNA PCR Not Detected (NotDetected) C. pneumoniae DNA (PCR) Not Detected (NotDetected) Coronavirus OC43 (PCR) Not Detected (NotDetected) Coronavirus HKU1 (PCR) Not Detected (NotDetected) Coronavirus 229E (PCR) Not Detected (NotDetected) SARS-CoV-2 (PCR) Not Detected (NotDetected) Coronavirus NL63 (PCR) Not Detected (NotDetected) Human Metapneumovir PCR Not Detected (NotDetected) Influenza Type A (PCR) Not Detected (NotDetected) Influenza Type B (PCR) Not Detected (NotDetected) M. pneumoniae (PCR) Not Detected (NotDetected) Parainfluenza 1 (PCR) Not Detected (NotDetected) Parainfluenza 2 (PCR) Not Detected (NotDetected) Parainfluenza 3 (PCR) Not Detected (NotDetected) Parainfluenza 4 (PCR) Not Detected (NotDetected) RSV (PCR) Not Detected (NotDetected) Entero/Rhino (PCR) Not Detected (NotDetected) 11/10/24 Range/Units 12:48 WBC 12.91 H (4.8-10.8) K/ul RBC 4.17 L (4.70-6.10) M/uL Hgb 12.3 L (14.0-18.0) g/dl Hct 37.0 L (42.0-52.0) % MCV 88.7 (80.0-100.0) fL MCH 29.5 (25.0-34.0) pg MCHC 33.2 (32.0-36.0) g/dL RDW Std Deviation 46.4 H (36.4-46.3) fL RDW Coeff of Miguel 14.3 (11.5-14.5) % Plt Count 106 L (130-400) K/uL MPV 11.3 (9.4-12.4) fL Immature Gran % (Auto) 0.5 % Neut % (Auto) 90.2 % Lymph % (Auto) 2.4 % [place] % (Auto) 6.7 % Eos % (Auto) 0.0 % Baso % (Auto) 0.2 % Neut # (Auto) 11.65 H (1.40-6.50) K/uL Lymph # (Auto) 0.31 L (1.20-3.40) K/uL [place] # (Auto) 0.87 H (0.11-0.59) K/uL Eos # (Auto) 0.00 (0.00-0.50) K/uL Baso # (Auto) 0.02 (0.00-0.20) K/uL Immature Gran # (Auto) 0.06 (0.01-0.20) K/uL Sodium 141 (136-145) mmol/L Potassium 3.8 (3.5-5.1) mmol/L Chloride 106 (98-107) mmol/L Carbon Dioxide 26 (21-32) mmol/L Anion Gap 9 (3-11) BUN 33 H (6-23) mg/dl Creatinine 2.17 H (0.6-1.4) mg/dl Est Cr Clr Drug Dosing 26.6 ml/min eGFR 30.98 BUN/Creatinine Ratio 15.2 (10-20) Glucose 134 H (70-99(Fasting)) mg/dl Lactate (0.4-2.0) mmol/L Calcium 9.4 (8.6-10.3) mg/dl Magnesium 2.3 (1.7-2.4) mg/dl Total Bilirubin 1.9 H (0.2-1.0) mg/dl AST 26 (13-39) U/L ALT 13 (7-52) U/L Alkaline Phosphatase 63 (34-104) U/L Total Creatine Kinase 496 H (30-223) U/L Troponin I High Sens 22.9 H (0-20) pg/ml Total Protein 7.2 (6.0-8.3) gm/dl Albumin 3.8 (3.4-5.0) gm/dl Globulin 3.4 (2.5-4.0) gm/dl Albumin/Globulin Ratio 1.1 (0.9-2) TSH 1.600 (0.300-4.500) uIu/ml Urine Color Urine Appearance (Clear) Urine pH (4.5-7.5) Ur Specific [place] (1.000-1.030) Urine Protein (Negative) Urine Glucose (UA) (Negative) Urine Ketones (Negative) Urine Blood (Negative) Urine Nitrite (Negative) Urine Bilirubin (Negative) Urine Urobilinogen (Negative) Ur Leukocyte Esterase (Negative) Urine WBC (Auto) (0-5) /hpf Urine RBC (Auto) (0-2) /hpf U Hyaline Cast (Auto) (0-2) /lpf U Epithel Cells (Auto) (0-2) /hpf Urine Bacteria (Auto) (None Seen) Hyaline Casts (None Presnt) /lpf Urine Comment Adenovirus (PCR) (NotDetected) B. pertussis DNA (PCR) (NotDetected) B.parapertussis DNA PCR (NotDetected) C. pneumoniae DNA (PCR) (NotDetected) Coronavirus OC43 (PCR) (NotDetected) Coronavirus HKU1 (PCR) (NotDetected) Coronavirus 229E (PCR) (NotDetected) SARS-CoV-2 (PCR) (NotDetected) Coronavirus NL63 (PCR) (NotDetected) Human Metapneumovir PCR (NotDetected) Influenza Type A (PCR) (NotDetected) Influenza Type B (PCR) (NotDetected) M. pneumoniae (PCR) (NotDetected) Parainfluenza 1 (PCR) (NotDetected) Parainfluenza 2 (PCR) (NotDetected) Parainfluenza 3 (PCR) (NotDetected) Parainfluenza 4 (PCR) (NotDetected) RSV (PCR) (NotDetected) Entero/Rhino (PCR) (NotDetected) Diagnostic Findings Cervical Spine CT 11/10/24 15:23 CT cervical spine without IV contrast History: Trauma Comparison: None Technique: Using multidetector thin collimation helical acquisition technique, axial, coronal and sagittal CT images through the cervical spine were obtained without intravenous contrast. Dose reduction techniques were achieved by using automatic exposure control and/or adjustment of mA and/or kV according to patient size and/or use of iterative reconstruction technique. Findings: The cervical vertebrae are normally aligned. Straightened cervical lordosis. No acute fracture or subluxation. No prevertebral edema. ACDF changes seen at C5-C7. No abnormality of the paraspinous soft tissues. Impression: No acute fracture or traumatic subluxation. Electronically signed by James Thomas 11-10-2024 5:19 PM Chest X-Ray 11/10/24 15:23 Chest radiograph, one view History: Fall Comparison: December 08, 2015 Findings: Single AP view of the chest performed. The lungs appear emphysematous. No focal consolidation or pleural effusion. No pneumothorax. The cardiomediastinal silhouette is within normal limits. Normal pulmonary vascularity. No evidence for lymphadenopathy. No visualized bony or soft tissue abnormality. There is a right-sided rib deformity that appears likely chronic. Left chest wall battery pack with cemented device extending into the left side of the neck. Small to moderate hiatal hernia. Impression: No acute process. A lateral right-sided rib 6 deformity appears likely chronic, however recommend correlation with point tenderness. Hiatal hernia. Emphysema. Electronically signed by James Thomas 11-10-2024 4:[address] 11/10/24 15:23 CT head without contrast History: Trauma Comparison: None Technique: Using multidetector thin collimation helical acquisition technique, axial, coronal and sagittal CT images from the skull base to the vertex were obtained without intravenous contrast. Dose reduction techniques were achieved by using automatic exposure control and/or adjustment of mA and/or kV according to patient size and/or use of iterative reconstruction technique. Findings: No intracranial hemorrhage, mass-effect, or midline shift. The ventricles are proportionate to the cerebral sulci. The parada to white matter differentiation of the cerebral hemispheres is preserved. The basal cisterns are patent. The visualized paranasal sinuses are clear. Mastoid air cells are clear. Bilateral deep brain stimulator devices extending through the frontal bones, terminating near the subthalamic nuclei. Impression: No acute intracranial pathology. Electronically signed by James Thomas 11-10-2024 5:03 PM Head CTA 11/10/24 15:23 CT angiogram of the neck CT angiogram of the brain with contrast Provided History: Neuro deficit Comparison: None Technique: HEAD and NECK CTA: During rapid bolus intravenous injection of nonionic contrast material, axial images were obtained using thin collimation multidetector helical technique from the base of the neck through the of vertex of the head. This CT angiogram data was reconstructed at thin intervals with mild overlap. 3D reconstructions were obtained. The axial source images, multiplanar reformations, 3D reconstructions in both maximum intensity projection display and volume rendered models were reviewed. Dose reduction techniques were achieved by using automatic exposure control and/or adjustment of mA and/or kV according to patient size and/or use of iterative reconstruction technique. Findings: Head CTA demonstrates no aneurysm or stenosis of the major intracranial arteries. Neck CTA demonstrates atherosclerotic calcification of the carotid bulbs bilaterally extending into the proximal ICA. There is a short segment of mild, less than 25% stenosis of the proximal right ICA. At the proximal left ICA, there is a short segment of approximately 35 to 45% stenosis. No large vessel occlusion. Widely patent distal internal carotid arteries in the neck. The origins of the great vessels from the aortic arch are patent. No mass is noted within the visualized portions of the cervical soft tissues or lung apices. Impression: 1. Head CTA demonstrates no aneurysm or stenosis of the major intracranial arteries, 2. Neck CTA demonstrates no large vessel occlusion. Atherosclerotic disease of the carotid bulbs, resulting in stenosis at the proximal ICA, as above. Electronically signed by James Thomas 11-10-2024 5:19 PM Neck CTA 11/10/24 15:23 CT angiogram of the neck CT angiogram of the brain with contrast Provided History: Neuro deficit Comparison: None Technique: HEAD and NECK CTA: During rapid bolus intravenous injection of nonionic contrast material, axial images were obtained using thin collimation multidetector helical technique from the base of the neck through the of vertex of the head. This CT angiogram data was reconstructed at thin intervals with mild overlap. 3D reconstructions were obtained. The axial source images, multiplanar reformations, 3D reconstructions in both maximum intensity projection display and volume rendered models were reviewed. Dose reduction techniques were achieved by using automatic exposure control and/or adjustment of mA and/or kV according to patient size and/or use of iterative reconstruction technique. Findings: Head CTA demonstrates no aneurysm or stenosis of the major intracranial arteries. Neck CTA demonstrates atherosclerotic calcification of the carotid bulbs bilaterally extending into the proximal ICA. There is a short segment of mild, less than 25% stenosis of the proximal right ICA. At the proximal left ICA, there is a short segment of approximately 35 to 45% stenosis. No large vessel occlusion. Widely patent distal internal carotid arteries in the neck. The origins of the great vessels from the aortic arch are patent. No mass is noted within the visualized portions of the cervical soft tissues or lung apices. Impression: 1. Head CTA demonstrates no aneurysm or stenosis of the major intracranial arteries, 2. Neck CTA demonstrates no large vessel occlusion. Atherosclerotic disease of the carotid bulbs, resulting in stenosis at the proximal ICA, as above. Electronically signed by James Thomas 11-10-2024 5:19 PM Pelvis X-Ray 11/10/24 15:23 HISTORY: Trauma due to fall. TECHNIQUE: AP radiographs of the pelvis, 2 views. COMPARISON: None. FINDINGS: Right hip arthroplasty with the femoral stem incompletely imaged. Multiple cerclage wires about the proximal diaphysis of the femur. No acute periprosthetic fracture is identified. The right hip arthroplasty appears appropriately aligned. Left hip arthroplasty in appropriate alignment. No periprosthetic fracture or lucency. There is significant heterotopic ossification about the left hip. Radiotherapy seeds of about the prostate. The pelvic and obturator rings appear intact. There is no widening of the pubic symphysis or sacroiliac joints. Enthesophyte formation about the iliac crests. Degenerative changes of the lower lumbar spine. IMPRESSION: * No acute osseous abnormality. * Bilateral hip arthroplasties without obvious complication. * Extensive heterotopic ossification about the left hip may predispose to impingement. * Additional findings as above. Electronically signed by Raz Woodson 11-10-2024 4:[address] 11/10/24 15:24 CT LUMBAR SPINE WITHOUT CONTRAST: HISTORY: Trauma TECHNIQUE: Noncontrast CT examination of the lumbar spine is performed. Coronal and sagittal reformats were created. COMPARISON: FINDINGS: LUMBAR SPINE: There is no significant vertebral body height loss. No acute traumatic fracture identified. There is no significant spondylolisthesis. Usual lumbar lordosis is preserved. Multilevel degenerative changes characterized by disc space loss, broad based disc bulge/herniations with endplate changes of the vertebral bodies with small marginal osteophytes as well as bilateral facet hypertrophy and thickening of the ligamentum flavum resulting in crowding of the subarticular recesses and narrowing of neural foramina worst at L4-S1. IMPRESSION: No acute traumatic fracture of the lumbar spine. Multilevel degenerative changes as above Electronically signed by Fernandez Kelley 11-10-2024 5:34 PM Supervising Physician Co-Signing Physician Notes Patient seen and examined, chart reviewed, case discussed with Alicia Cancino PA-C and I agree with the assessment and plan as above except as otherwise noted Labs and images reviewed 73-year-old male with a history of GERD, Parkinson's, hypertension, hyperlipidemia who presents with falls, weakness. He was not ejected. UA. She recommended for admission for UTI. Reported to have hallucinations in termittently, and is appropriately oriented at the bedside. Has a leukocytosis, elevated lactic. S/p 1 L of fluids. IBW sepsis goal 9020 cc. Additional 1 L bolus ordered. Blood cultures are pending and Rocephin is continued. Lactic repeat following completion including bolus pending. Does have some dizziness. CT of the head, CTA head and neck are normal. Agree with evaluation and management as above. PG Care Time/CCT Total # of Minutes Spent Total Time Spent with Patient: Total time spent is greater than 50% in coordination of care (as documented) at patient's floor/unit and/or counseling patient: Coding Level of Care Code 55629 INT INP/OBS CARE 3/75MIN Diagnoses Sepsis A41.9 Acute UTI (urinary tract infection) N39.0 Acute kidney injury superimposed on chronic kidney disease N17.9; N18.9 Fall W19.XXXA Leukocytosis D72.829 Elevated troponin R79.89 Urinary frequency R35.0 Parkinsons disease G20 GERD (gastroesophageal reflux disease) K21.9 Hyperlipidemia E78.5 Hypertension I10
[2024-11-10] MEDS: LIDOCAINE 5% 1 PATCH TD STA (18:31)
[2024-11-10] MEDS: ACETAMINOPHEN 1000 MG/100 ML IV IV ONE (18:36)
[2024-11-10] MEDS: ACETAMINOPHEN SUSP 160 MG/5 ML BTL PO STA (18:52)
[2024-11-10] MEDS ORDERED: ONDANSETRON INJ 2 MG/ML 2 ML VIAL IV PRN (20:41)
[2024-11-10] MEDS: HEPARIN SOD 5,000 UNIT/0.5 ML VIAL SQ SCH (21:25)
[2024-11-10] MEDS: TAMSULOSIN HCL 0.4 MG CAP PO SCH (21:26)
[2024-11-11 04:14] LABS: Anion Gap 6 (3-11); Blood Urea Nitrogen 29 mg/dl (6-23); Calcium 8.8 mg/dl (8.6-10.3); Carbon Dioxide 26 mmol/L (21-32); Chloride 110 mmol/L (98-107); Creatinine Clr Calc Pharmacy 34.6 ml/min; Glucose 128 mg/dl (70-99(Fasting)); Potassium 3.9 mmol/L (3.5-5.1); Sodium 142 mmol/L (136-145)
[2024-11-11 04:27] LABS: Hematocrit (blood only) 34.4 % (42.0-52.0); Hemoglobin 11.2 g/dl (14.0-18.0); Mean Corpuscular Hemoglobin 29.0 pg (25.0-34.0); Mean Corpuscular Volume 89.1 fL (80.0-100.0); Platelet Count 92 K/uL (130-400); RDW Standard Deviation 46.6 fL (36.4-46.3); Red Blood Count 3.86 M/uL (4.70-6.10); White Blood Count 12.31 K/ul (4.8-10.8)
[2024-11-11 04:29] LABS: Alanine Aminotransferase 14 U/L (7-52); Alkaline Phosphatase 54 U/L (34-104); Bilirubin,Total 1.2 mg/dl (0.2-1.0); Creatine Kinase 609 U/L (30-223); Iron < 10 mcg/dl (35-175); Magnesium 2.1 mg/dl (1.7-2.4); Total Iron Binding Cap Calc 231 mcg/dl (250-450); Total Protein 6.5 gm/dl (6.0-8.3); Transferrin 165 mg/dl (200-360)
[2024-11-11 04:32] LABS: Ferritin 236.5 ng/ml (8-388)
[2024-11-11] MEDS: REMOVE LIDODERM PATCH ONE (05:56)
--- NOTE | 2024-11-11 07:41 | Hospitalist Progress Note ---
Date of Service November 11, 2024 Assessment & Plan (1) Sepsis: (2) Acute UTI (urinary tract infection): (3) Acute kidney injury superimposed on chronic kidney disease: (4) Fall: (5) Leukocytosis: (6) Elevated troponin: (7) Urinary frequency: (8) Parkinsons disease: (9) GERD (gastroesophageal reflux disease): (10) Hyperlipidemia: (11) Hypertension: (12) B12 deficiency: Plan #Sepsis, Suspected UTI #Fall, Ambulatory Dysfunction, mild elevation CK/rhabdo, lumbar stenosis Admit med w/ telemetry to ensure no alternative reason for fall however suspected w/ hx parkisons' incontinence at baseline and pad use could be contributing. Prior ECHO w/ acceptable EF, mod aortic insufficiency, elevated RVSP but IVC not dilated/does not appear overloaded at this time. Additional 1L NSS bolus for sepsis criteria ordered, lactic 1.9 on repeat. TSH wnl WBC 12.9k--> 12.3k. temp 38.6 last evening 11/10 Ceftriaxone IV Urine cx pending (prior urine cx w/o resistance) Tylenol as needed for fever/pain, Cr 1.67, losartan remains on hold. CK 603 Defer additional IVF at this time unless issues w/ PO intake w/ underlying parkinsons and ate decent breakfast and will continue to hold statin Continue fall precautions, PT/OT consults - daughter pref Mr Mesa and CM to follow Monitor labs in AM #ANTONELLA on CKD- Cr above baseline 2.17, likely in setting of poor PO intake/dehydration and ongoing losartan use Losartan remains on hold, IVF as above and defer ongoing for now BUN/Cr improved to 29/1.67 Renal dose meds/avoid nephrotoxins BMP in AM #Parkinsons -- has DBS in place, daughter bringing in supplies. Possible underly ing dementia per daughter w/ hallucinations but was alert/oriented for myself during exam Fall precautions, PT/OT, tx of above Consider low dose antipsychotic HS pending ongoing inpatient stay but will defer for now #Urinary incontinence/BPH at baseline -- tx UTI as above, [facility] Continue flomax BID, PSA stable w/ hx prostate ca Monitor w/ bladder scan for tavares if needed #HTN, elevated troponin- on losartan as above, BP 129/57 and holding losartan w/ ANTONELLA. Minimal troponin elevation 22.9 in setting sepsis/infection but did further increase to 83 today but suspected demand ischemia from sepsis/ANTONELLA/UTI/infection given no CP and will add repeat to trend peak and have ordered repeat EKG for evaluation *Do note HR to 29 w/ rectal temp (was prior on metoprolol, not any longer) -- telemetry w/ NSR w/ PACs since that time 50-80s and will continue to monitor for any issues/tachy/peter and conssult cards if needed Repeat EKG pending, RN notified to obtain as still pending ECHO this past month w/o wma noted Monitor BP/labs to resume ARB #GERD- continue PPI, aspiration precautions #Anemia- appears chronic, no bleeding reported. Checked iron studies/B12 for completeness with falls/balance issues as well. TSH wnl #B12 deficiency- B12 low normal at 204 and 1000mcg PO supplementation has been ordered - rec to continue at [facility] #Iron deficiency - iron <10, ferritin 236 w/ sepsis and could consider PO iron once moving bowels to repeat stores DVT proph: Heparin SQ, avoided lovenox w/ ANTONELLA. Monitor to hold for plts Dispo: continued inpatient stay for abx/monitoring cultures. PT/OT consults pending and likely need for SNF/[facility] at [facility] as discussed w/ daughter Admission and Anticipated Discharge Date Admission Date: November 10, 2024 Subjective Evalutated this morning, had episode vagal response w/ HR to 29 overnight w/ obtaining rectal temp, hallucination overnight but alert/oriented for myself. Per nursing, awake this morning, ate most of his breakfast. Denies significant pain at this time, needs to use the bathroom to move his bowels. Does not want bedpan but agreeable to bedside commode, RN notified. Less tremor today. Troponin elevation but no CP. Slight headache, tylenol to be administered. Remains on abx, urine cx pending. Updated daughter via phone - pref for Dominic Mesa -- message to sent for f/u once therapy evaluations completed. Questions/concerns addressed at this time. Physical Exam Physical Exam: General: 73yo male resting in bed, NAD, tremor improved/present at baseline, sleeping upon arrival but easily awoken HEENT: mm slightly dry, trachea midline, normocephalic/atraumatic Chest: DBS to L chest Resp: even/unlabored, no overt wheezing/rales, on room air CV: regular, faint systolic murmur, NO pitting edema, pulses present, calves nontender GI: +BS, slight distension but nontender, no guarding, slight suprapubic fullness : no tavares MSK/Neuro/Psych: able to answer questions appropriately, not confused, alert to person/place/time/event, tremor at baseline, generalized weakness but nonfocal Skin: scabs present to LE/no drainage or cellulitic appearance Results & Data Results & Data Vital Signs (Past 12 Hours) Vital Signs Temp Pulse Pulse Pulse Resp BP Pulse Ox 11/11/24 07:08 69 11/11/24 04:20 36.6 C 75 18 127/53 L 95 11/11/24 00:31 108/51 L 11/10/24 22:57 36.8 C 93 H 16 99/41 L 96 11/10/24 22:03 82 11/10/24 20:41 11/10/24 20:41 11/10/24 20:41 38.6 C H 88 20 109/55 L 95 11/10/24 20:27 84 Pulse Ox O2 Del Method O2 Del Method 11/11/24 07:08 11/11/24 04:20 Room Air 11/11/24 00:31 11/10/24 22:57 Room Air 11/10/24 22:03 11/10/24 20:41 Room Air 11/10/24 20:41 95 Room Air 11/10/24 20:41 Room Air 11/10/24 20:27 Laboratory Results 11/11/24 11/10/24 11/10/24 Range/Units 02:34 21:26 18:39 WBC 12.31 H (4.8-10.8) K/ul RBC 3.86 L (4.70-6.10) M/uL Hgb 11.2 L (14.0-18.0) g/dl Hct 34.4 L (42.0-52.0) % MCV 89.1 (80.0-100.0) fL MCH 29.0 (25.0-34.0) pg MCHC 32.6 (32.0-36.0) g/dL RDW Std Deviation 46.6 H (36.4-46.3) fL RDW Coeff of Miguel 14.4 (11.5-14.5) % Plt Count 92 L (130-400) K/uL MPV 11.0 (9.4-12.4) fL Immature Gran % (Auto) % Neut % (Auto) % Lymph % (Auto) % [place] % (Auto) % Eos % (Auto) % Baso % (Auto) % Neut # (Auto) (1.40-6.50) K/uL Lymph # (Auto) (1.20-3.40) K/uL [place] # (Auto) (0.11-0.59) K/uL Eos # (Auto) (0.00-0.50) K/uL Baso # (Auto) (0.00-0.20) K/uL Immature Gran # (Auto) (0.01-0.20) K/uL Platelet Estimate Decreased L (Normal) Sodium 142 (136-145) mmol/L Potassium 3.9 (3.5-5.1) mmol/L Chloride 110 H (98-107) mmol/L Carbon Dioxide 26 (21-32) mmol/L Anion Gap 6 (3-11) BUN 29 H (6-23) mg/dl Creatinine 1.67 H D (0.6-1.4) mg/dl Est Cr Clr Drug Dosing 34.6 ml/min eGFR 42.42 BUN/Creatinine Ratio 17.4 (10-20) Glucose 128 H (70-99(Fasting)) mg/dl Lactate 1.9 (0.4-2.0) mmol/L Calcium 8.8 (8.6-10.3) mg/dl Magnesium 2.1 (1.7-2.4) mg/dl Iron < 10 L (35-175) mcg/dl TIBC 231 L (250-450) mcg/dl Transferrin 165 L (200-360) mg/dl Transferrin % Sat TNP Ferritin 236.5 (8-388) ng/ml Total Bilirubin 1.2 H (0.2-1.0) mg/dl Direct Bilirubin 0.2 (0-0.2) mg/dl AST 28 (13-39) U/L ALT 14 (7-52) U/L Alkaline Phosphatase 54 (34-104) U/L Total Creatine Kinase 609 H (30-223) U/L Troponin I High Sens 72.6 H* D 45.1 H D 29.3 H (0-20) pg/ml Total Protein 6.5 (6.0-8.3) gm/dl Albumin 3.6 (3.4-5.0) gm/dl Globulin (2.5-4.0) gm/dl Albumin/Globulin Ratio (0.9-2) Prostate Specific Ag 0.012 (0-4) ng/ml Vitamin B12 204 (180-914) pg/ml TSH (0.300-4.500) uIu/ml Urine Color Urine Appearance (Clear) Urine pH (4.5-7.5) Ur Specific [place] (1.000-1.030) Urine Protein (Negative) Urine Glucose (UA) (Negative) Urine Ketones (Negative) Urine Blood (Negative) Urine Nitrite (Negative) Urine Bilirubin (Negative) Urine Urobilinogen (Negative) Ur Leukocyte Esterase (Negative) Urine WBC (Auto) (0-5) /hpf Urine RBC (Auto) (0-2) /hpf U Hyaline Cast (Auto) (0-2) /lpf U Epithel Cells (Auto) (0-2) /hpf Urine Bacteria (Auto) (None Seen) Hyaline Casts (None Presnt) /lpf Urine Comment Adenovirus (PCR) (NotDetected) B. pertussis DNA (PCR) (NotDetected) B.parapertussis DNA PCR (NotDetected) C. pneumoniae DNA (PCR) (NotDetected) Coronavirus OC43 (PCR) (NotDetected) Coronavirus HKU1 (PCR) (NotDetected) Coronavirus 229E (PCR) (NotDetected) SARS-CoV-2 (PCR) (NotDetected) Coronavirus NL63 (PCR) (NotDetected) Human Metapneumovir PCR (NotDetected) Influenza Type A (PCR) (NotDetected) Influenza Type B (PCR) (NotDetected) M. pneumoniae (PCR) (NotDetected) Parainfluenza 1 (PCR) (NotDetected) Parainfluenza 2 (PCR) (NotDetected) Parainfluenza 3 (PCR) (NotDetected) Parainfluenza 4 (PCR) (NotDetected) RSV (PCR) (NotDetected) Entero/Rhino (PCR) (NotDetected) 11/10/24 11/10/24 11/10/24 Range/Units 17:05 16:10 16:06 WBC (4.8-10.8) K/ul RBC (4.70-6.10) M/uL Hgb (14.0-18.0) g/dl Hct (42.0-52.0) % MCV (80.0-100.0) fL MCH (25.0-34.0) pg MCHC (32.0-36.0) g/dL RDW Std Deviation (36.4-46.3) fL RDW Coeff of Miguel (11.5-14.5) % Plt Count (130-400) K/uL MPV (9.4-12.4) fL Immature Gran % (Auto) % Neut % (Auto) % Lymph % (Auto) % [place] % (Auto) % Eos % (Auto) % Baso % (Auto) % Neut # (Auto) (1.40-6.50) K/uL Lymph # (Auto) (1.20-3.40) K/uL [place] # (Auto) (0.11-0.59) K/uL Eos # (Auto) (0.00-0.50) K/uL Baso # (Auto) (0.00-0.20) K/uL Immature Gran # (Auto) (0.01-0.20) K/uL Platelet Estimate (Normal) Sodium (136-145) mmol/L Potassium (3.5-5.1) mmol/L Chloride (98-107) mmol/L Carbon Dioxide (21-32) mmol/L Anion Gap (3-11) BUN (6-23) mg/dl Creatinine (0.6-1.4) mg/dl Est Cr Clr Drug Dosing ml/min eGFR BUN/Creatinine Ratio (10-20) Glucose (70-99(Fasting)) mg/dl Lactate 2.5 H* (0.4-2.0) mmol/L Calcium (8.6-10.3) mg/dl Magnesium (1.7-2.4) mg/dl Iron (35-175) mcg/dl TIBC (250-450) mcg/dl Transferrin (200-360) mg/dl Transferrin % Sat Ferritin (8-388) ng/ml Total Bilirubin (0.2-1.0) mg/dl Direct Bilirubin (0-0.2) mg/dl AST (13-39) U/L ALT (7-52) U/L Alkaline Phosphatase (34-104) U/L Total Creatine Kinase (30-223) U/L Troponin I High Sens (0-20) pg/ml Total Protein (6.0-8.3) gm/dl Albumin (3.4-5.0) gm/dl Globulin (2.5-4.0) gm/dl Albumin/Globulin Ratio (0.9-2) Prostate Specific Ag (0-4) ng/ml Vitamin B12 (180-914) pg/ml TSH (0.300-4.500) uIu/ml Urine Color Yellow Urine Appearance Cloudy A (Clear) Urine pH 5.5 (4.5-7.5) Ur Specific [place] 1.031 H (1.000-1.030) Urine Protein 2+ H (Negative) Urine Glucose (UA) Negative (Negative) Urine Ketones Trace H (Negative) Urine Blood 3+ H (Negative) Urine Nitrite Negative (Negative) Urine Bilirubin Negative (Negative) Urine Urobilinogen Negative (Negative) Ur Leukocyte Esterase 2+ H (Negative) Urine WBC (Auto) >50 H (0-5) /hpf Urine RBC (Auto) 3-5 H (0-2) /hpf U Hyaline Cast (Auto) 11-20 H (0-2) /lpf U Epithel Cells (Auto) 0-2 (0-2) /hpf Urine Bacteria (Auto) 2+ H (None Seen) Hyaline Casts Present A (None Presnt) /lpf Urine Comment Adenovirus (PCR) Not Detected (NotDetected) B. pertussis DNA (PCR) Not Detected (NotDetected) B.parapertussis DNA PCR Not Detected (NotDetected) C. pneumoniae DNA (PCR) Not Detected (NotDetected) Coronavirus OC43 (PCR) Not Detected (NotDetected) Coronavirus HKU1 (PCR) Not Detected (NotDetected) Coronavirus 229E (PCR) Not Detected (NotDetected) SARS-CoV-2 (PCR) Not Detected (NotDetected) Coronavirus NL63 (PCR) Not Detected (NotDetected) Human Metapneumovir PCR Not Detected (NotDetected) Influenza Type A (PCR) Not Detected (NotDetected) Influenza Type B (PCR) Not Detected (NotDetected) M. pneumoniae (PCR) Not Detected (NotDetected) Parainfluenza 1 (PCR) Not Detected (NotDetected) Parainfluenza 2 (PCR) Not Detected (NotDetected) Parainfluenza 3 (PCR) Not Detected (NotDetected) Parainfluenza 4 (PCR) Not Detected (NotDetected) RSV (PCR) Not Detected (NotDetected) Entero/Rhino (PCR) Not Detected (NotDetected) 11/10/24 Range/Units 12:48 WBC 12.91 H (4.8-10.8) K/ul RBC 4.17 L (4.70-6.10) M/uL Hgb 12.3 L (14.0-18.0) g/dl Hct 37.0 L (42.0-52.0) % MCV 88.7 (80.0-100.0) fL MCH 29.5 (25.0-34.0) pg MCHC 33.2 (32.0-36.0) g/dL RDW Std Deviation 46.4 H (36.4-46.3) fL RDW Coeff of Miguel 14.3 (11.5-14.5) % Plt Count 106 L (130-400) K/uL MPV 11.3 (9.4-12.4) fL Immature Gran % (Auto) 0.5 % Neut % (Auto) 90.2 % Lymph % (Auto) 2.4 % [place] % (Auto) 6.7 % Eos % (Auto) 0.0 % Baso % (Auto) 0.2 % Neut # (Auto) 11.65 H (1.40-6.50) K/uL Lymph # (Auto) 0.31 L (1.20-3.40) K/uL [place] # (Auto) 0.87 H (0.11-0.59) K/uL Eos # (Auto) 0.00 (0.00-0.50) K/uL Baso # (Auto) 0.02 (0.00-0.20) K/uL Immature Gran # (Auto) 0.06 (0.01-0.20) K/uL Platelet Estimate (Normal) Sodium 141 (136-145) mmol/L Potassium 3.8 (3.5-5.1) mmol/L Chloride 106 (98-107) mmol/L Carbon Dioxide 26 (21-32) mmol/L Anion Gap 9 (3-11) BUN 33 H (6-23) mg/dl Creatinine 2.17 H (0.6-1.4) mg/dl Est Cr Clr Drug Dosing 26.6 ml/min eGFR 30.98 BUN/Creatinine Ratio 15.2 (10-20) Glucose 134 H (70-99(Fasting)) mg/dl Lactate (0.4-2.0) mmol/L Calcium 9.4 (8.6-10.3) mg/dl Magnesium 2.3 (1.7-2.4) mg/dl Iron (35-175) mcg/dl TIBC (250-450) mcg/dl Transferrin (200-360) mg/dl Transferrin % Sat Ferritin (8-388) ng/ml Total Bilirubin 1.9 H (0.2-1.0) mg/dl Direct Bilirubin (0-0.2) mg/dl AST 26 (13-39) U/L ALT 13 (7-52) U/L Alkaline Phosphatase 63 (34-104) U/L Total Creatine Kinase 496 H (30-223) U/L Troponin I High Sens 22.9 H (0-20) pg/ml Total Protein 7.2 (6.0-8.3) gm/dl Albumin 3.8 (3.4-5.0) gm/dl Globulin 3.4 (2.5-4.0) gm/dl Albumin/Globulin Ratio 1.1 (0.9-2) Prostate Specific Ag (0-4) ng/ml Vitamin B12 (180-914) pg/ml TSH 1.600 (0.300-4.500) uIu/ml Urine Color Urine Appearance (Clear) Urine pH (4.5-7.5) Ur Specific [place] (1.000-1.030) Urine Protein (Negative) Urine Glucose (UA) (Negative) Urine Ketones (Negative) Urine Blood (Negative) Urine Nitrite (Negative) Urine Bilirubin (Negative) Urine Urobilinogen (Negative) Ur Leukocyte Esterase (Negative) Urine WBC (Auto) (0-5) /hpf Urine RBC (Auto) (0-2) /hpf U Hyaline Cast (Auto) (0-2) /lpf U Epithel Cells (Auto) (0-2) /hpf Urine Bacteria (Auto) (None Seen) Hyaline Casts (None Presnt) /lpf Urine Comment Adenovirus (PCR) (NotDetected) B. pertussis DNA (PCR) (NotDetected) B.parapertussis DNA PCR (NotDetected) C. pneumoniae DNA (PCR) (NotDetected) Coronavirus OC43 (PCR) (NotDetected) Coronavirus HKU1 (PCR) (NotDetected) Coronavirus 229E (PCR) (NotDetected) SARS-CoV-2 (PCR) (NotDetected) Coronavirus NL63 (PCR) (NotDetected) Human Metapneumovir PCR (NotDetected) Influenza Type A (PCR) (NotDetected) Influenza Type B (PCR) (NotDetected) M. pneumoniae (PCR) (NotDetected) Parainfluenza 1 (PCR) (NotDetected) Parainfluenza 2 (PCR) (NotDetected) Parainfluenza 3 (PCR) (NotDetected) Parainfluenza 4 (PCR) (NotDetected) RSV (PCR) (NotDetected) Entero/Rhino (PCR) (NotDetected) PG Care Time/CCT Total # of Minutes Spent Total Time Spent with Patient: Total time spent is greater than 50% in coordination of care (as documented) at patient's floor/unit and/or counseling patient: Coding Level of Care Code 61540 SUB INP/OBS CARE 3/50MIN Diagnoses Sepsis A41.9 Acute UTI (urinary tract infection) N39.0 Acute kidney injury superimposed on chronic kidney disease N17.9; N18.9 Fall W19.XXXA Leukocytosis D72.829 Elevated troponin R79.89 Urinary frequency R35.0 Parkinsons disease G20 GERD (gastroesophageal reflux disease) K21.9 Hyperlipidemia E78.5 Hypertension I10 B12 deficiency E53.8
[2024-11-11] MEDS: CYANOCOBALAMIN (B-12) 500 MCG TABLET PO SCH (09:13)
[2024-11-11] MEDS: ACETAMINOPHEN 325 MG TAB PO PRN (09:13)
[2024-11-11] MEDS: ASPIRIN 81 MG ECTAB PO SCH (09:13)
[2024-11-11] MEDS: MULTIVITAMIN TAB PO SCH (09:13)
--- NOTE | 2024-11-11 13:18 | Electrocardiogram Report ---
Test Reason : Blood Pressure : */* mmHG Vent. Rate : 99 BPM Atrial Rate : 100 BPM P-R Int : * ms QRS Dur : 84 ms QT Int : 330 ms P-R-T Axes : 41 -10 185 degrees QTcB Int : 423 ms Poor data quality, interpretation may be adversely affected paced atrial rhythm Abnormal ECG When compared with ECG of 08-Jun-2016 10:44, Electronic ventricular pacemaker has replaced Sinus rhythm Vent. rate has increased by 37 bpm Confirmed by James Davila ([id number]) on 11/11/2024 1:18:28 PM Referred By: REFERRED SELF Confirmed By: James Davila
[2024-11-11] MEDS: cefTRIAXone SODIUM 2,000 MG/50 ML BAG IV SCH (16:51)
[2024-11-12 07:05] LABS: Hematocrit (blood only) 35.2 % (42.0-52.0); Hemoglobin 11.4 g/dl (14.0-18.0); Immature Granulocytes # (auto) 0.03 K/uL (0.01-0.20); Immature Granulocytes % (auto) 0.4 %; Mean Corpuscular Hemoglobin 28.6 pg (25.0-34.0); Mean Corpuscular Volume 88.2 fL (80.0-100.0); Platelet Count 101 K/uL (130-400); RDW Standard Deviation 45.9 fL (36.4-46.3); Red Blood Count 3.99 M/uL (4.70-6.10); White Blood Count 7.84 K/ul (4.8-10.8)
[2024-11-12 07:24] LABS: Alanine Aminotransferase 17.0 U/L (7-52); Albumin Globulin Ratio 1.2 (0.9-2); Alkaline Phosphatase 55.0 U/L (34-104); Anion Gap 6.0 (3-11); Bilirubin,Total 0.7 mg/dl (0.2-1.0); Blood Urea Nitrogen 24.0 mg/dl (6-23); Calcium 9.1 mg/dl (8.6-10.3); Carbon Dioxide 28.0 mmol/L (21-32); Chloride 106.0 mmol/L (98-107); Creatine Kinase 350.0 U/L (30-223); Creatinine Clr Calc Pharmacy 41.1 ml/min; Globulin 3.0 gm/dl (2.5-4.0); Glucose 120.0 mg/dl (70-99(Fasting)); Potassium 3.5 mmol/L (3.5-5.1); Sodium 140.0 mmol/L (136-145); Total Protein 6.5 gm/dl (6.0-8.3)
--- NOTE | 2024-11-12 09:26 | Electrocardiogram Report ---
Test Reason : Blood Pressure : */* mmHG Vent. Rate : 83 BPM Atrial Rate : 83 BPM P-R Int : 150 ms QRS Dur : 94 ms QT Int : 376 ms P-R-T Axes : 54 -3 3 degrees QTcB Int : 441 ms Sinus rhythm with Premature atrial complexes Otherwise normal ECG When compared with ECG of 10-Nov-2024 16:10, Sinus rhythm has replaced Electronic ventricular pacemaker Confirmed by Krystian Oconnell [id number]) on 11/12/2024 9:26:20 AM Referred By: REFERRED SELF Confirmed By: Krystian Oconnell
[2024-11-12 10:27] LABS: Lyme Screen Rflx Confirmation Positive (Negative)
--- NOTE | 2024-11-12 10:31 | Hospitalist Progress Note ---
Date of Service November 12, 2024 Assessment & Plan (1) Sepsis: (2) Acute UTI (urinary tract infection): (3) Acute kidney injury superimposed on chronic kidney disease: (4) Fall: (5) Elevated troponin: (6) Urinary frequency: (7) Parkinsons disease: (8) GERD (gastroesophageal reflux disease): (9) Hyperlipidemia: (10) Hypertension: (11) B12 deficiency: Plan 73-year-old male with a history of GERD, Parkinson's, hypertension, hyperlipidemia who presents with falls, weakness. initial evaluation concerning for UTI, also with increased creatinine and lactate at 2.5. #Sepsis, UTI #Fall, Ambulatory Dysfunction, mild elevation CK/rhabdo, lumbar stenosis Admit med w/ telemetry to ensure no alternative reason for fall however suspected w/ hx parkisons' incontinence at baseline and pad use could be contributing. Prior ECHO w/ acceptable EF, mod aortic insufficiency, elevated RVSP but IVC not dilated/does not appear overloaded at this time. Additional 1L NSS bolus for sepsis criteria ordered, lactic 1.9 on repeat. TSH wnl WBC Now downtrending and patient has remained afebrile. Urine culture with E. coli, continue Ceftriaxone IV , can be transition to p.o. at discharge Statin held with elevated CK Continue fall precautions, PT/OT consults - daughter pref Mr Mesa and CM to follow #ANTONELLA on CKD- Cr 2.17 on admission, baseline unclear (only 1 lab from 2018), likely in setting of poor PO intake/dehydration and ongoing losartan use Losartan remains on hold Creatinine has improved to 1.43 Given positive orthostatic vital signs give 1 L LR . Recheck orthostatic vital signs this afternoon and tomorrow morning BMP in AM #Parkinsons -- has DBS in place, daughter bringing in supplies. Possible underlying dementia per daughter w/ hallucinations but has been alert/oriented Fall precautions, PT/OT, tx of above Consider low dose antipsychotic HS pending ongoing inpatient stay but will defer for now #Urinary incontinence/BPH at baseline -- tx UTI as above, [facility] pads [facility] Continue flomax BID, PSA stable w/ hx prostate ca Monitor w/ bladder scan for tavares if needed #HTN, elevated troponin/ bradycardia Minimal troponin elevation - peaked at 83- suspected demand ischemia from sepsis/ANTONELLA/UTI/infection given no CP. *Do note HR to 29 - with few bradycardic events, asymptomatic, no AV blocking agents. Cardiology consulted EKG from 11/11 has heart rate 83, PACs ECHO this past month w/o wma noted losartan remains on hold from ANTONELLA however blood pressure is on the low side #GERD- continue PPI, aspiration precautions #Anemia- appears chronic, no bleeding reported. Checked iron studies/B12 for completeness with falls/balance issues as well. TSH wnl #B12 deficiency- B12 low normal at 204 and 1000mcg PO supplementation has been ordered - rec to continue at [facility] #Iron deficiency - iron <10, ferritin 236 w/ sepsis and could consider PO iron once moving bowels to repeat stores DVT proph: Heparin SQMonitor to hold for plts Dispo: continued inpatient stay for abx, cardiology evaluation. PT/OT consults pending and likely need for SNF[facility] [place] as discussed w/ daughter Daughter updated by phone 11/12 Admission and Anticipated Discharge Date Admission Date: November 10, 2024 Subjective Patient seen this morning, lying in bed. states that he did not sleep well last night and he is tired he is AxO x 3, reports living a simple life denies pain currently lives with daughter and her SO at home appetite is improving Review of Systems Review of Systems: All systems reviewed & are unremarkable except as noted in Subjective Physical Exam Physical Exam: General: NAD, VS as above, lying in bed, appears fatigued HEENT: MM Dry Resp: normal respiratory effort, lungs clear to auscultation , DBS in left chest CV: RRR, no murmur, Abd: normal bowel sounds, non tender, no hepatosplenomegaly Extremities: Moves all extremities, no edema Neuro: A&O x3, Skin: intact, no lesions noted Results & Data Results & Data Vital Signs (Past 12 Hours) Vital Signs Temp Pulse Pulse Pulse Resp BP Pulse Ox 11/12/24 07:15 98.6 F 85 18 138/74 98 11/12/24 07:00 79 11/12/24 03:55 97.5 F L 77 18 118/67 97 11/12/24 03:45 71 11/12/24 01:30 67 11/11/24 23:55 97.5 F L 98 H 18 129/67 97 Pulse Ox O2 Del Method O2 Del Method 11/12/24 07:15 Room Air 11/12/24 07:00 11/12/24 03:55 Room Air 11/12/24 03:45 100 Room Air 11/12/24 01:30 99 Room Air 11/11/24 23:55 Room Air Laboratory Results cbc and chemistry reviewed ck reviewed PG Care Time/CCT Total # of Minutes Spent Total Time Spent with Patient: Total time spent is greater than 50% in coordination of care (as documented) at patient's floor/unit and/or counseling patient: Coding Level of Care Code 91849 SUB INP/OBS CARE 3/50MIN Diagnoses Sepsis A41.9 Acute UTI (urinary tract infection) N39.0 Acute kidney injury superimposed on chronic kidney disease N17.9; N18.9 Fall W19.XXXA Elevated troponin R79.89 Urinary frequency R35.0 Parkinsons disease G20 GERD (gastroesophageal reflux disease) K21.9 Hyperlipidemia E78.5 Hypertension I10 B12 deficiency E53.8
[2024-11-12] MEDS: LACTATED RINGER'S 1,000 ML IV SCH (10:34)
[2024-11-12 11:11] LABS: Lyme Ab IgG 2nd Tier Confirm Negative (Negative); Lyme Ab IgM 2nd Tier Confirm Negative (Negative)
--- NOTE | 2024-11-12 13:11 | Cardiology Consultation ---
Date of Consultation November 12, 2024 Assessment & Plan (1) Bradycardia: -3 brief episodes of an abrupt bradycardia, 1 may have been reactive to a rectal temperature probe. -The patient has been asymptomatic. -Would simply follow on telemetry while hospitalized. (2) Hypertension: - Adequate control on current regimen. (3) Hyperlipidemia: - Continue rosuvastatin. History of Present Illness Attending Physician: Nazario Alcala History of Present Illness Mr. Grant is a 73-year-old male admitted on November 10 with sepsis likely from a urinary source. He had suffered a mechanical fall at the time of presentation. This consultation was ordered as the patient demonstrated several brief episodes of bradycardia. The patient's first episode of bradycardia apparently occurred while he was having a rectal temperature taken. However, he demonstrated 2 episodes at approximately 745 this morning where he became bradycardic and had a 1.9 followed by 2.8-second pause. The patient is on no AV active medications. He reported no symptoms during these episodes. The patient has no prior cardiac history. He is treated for hypertension and hypercholesterolemia. An echocardiogram performed on October 10 noted normal left ventricular systolic function with ejection fraction of 55 to 60%. There is mild LVH along with mild aortic insufficiency. No prior studies for comparison. Currently, patient resting comfortably in bed and without complaints. Past medical and surgical history 1. Hypertension 2. Hypercholesterolemia 3. GERD 4. Richardson's esophagus 5. Chronic renal failure 6. Parkinson's disease 7. BPH 8. Prostate carcinoma 9. Anxiety 10. DJD 11. Deep brain stimulatorAut 2018 12. Total hip replacement 13. Rotator cuff repair Social history No tobacco or alcohol Family history Noncontributory Review of systems A 10 point review of system was undertaken and negative except that described above. Allergies Allergy/AdvReac Type Severity Reaction Status Date / Time hydrocodone Allergy Intermediate ITCHING Verified 04/19/23 13:02 meperidine AdvReac Mild KNOT AT Verified 04/19/23 13:02 INJECTION SITE WITH IM ADMINISTRATION sulfamethoxazole AdvReac Hallucinati Verified 04/19/23 13:02 [From Bactrim] ng trimethoprim [From Bactrim] AdvReac Hallucinati Verified 04/19/23 13:02 ng Home Medications Medication Instructions Recorded Confirmed Type multivitamin (Daily Multi-Vitamin 1 tab PO DAILY 01/10/19 11/10/24 History tablet) aspirin 81 mg tablet,delayed 81 mg PO DAILY 02/02/19 11/10/24 History release tamsulosin 0.4 mg capsule 0.4 mg PO BID 90 days #180 caps 01/11/22 11/10/24 Rx dexlansoprazole 60 mg 60 mg PO QAM 11/10/24 11/10/24 History capsule,biphase delayed release losartan 25 mg tablet 25 mg PO QAM 11/10/24 11/10/24 History rosuvastatin 40 mg tablet 40 mg PO DAILY 11/10/24 11/10/24 History Patient History Medical History Elevated fasting glucose Radicular pain in right arm Low back pain Surgical History H/O brain surgery History of hip replacement History of repair of rotator cuff History of neck surgery History of back surgery Family History Mother Diabetes Father Diabetes Cardiac disorder Denies family history of Ovarian cancer Prostate cancer Myocardial infarction Breast cancer Social History Smoking Status: Former smoker Tobacco Type: Cigarettes packs per day: 42; Hx Alcohol Use: No Hx Substance Use: No Preferred Language: Kiswahili 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 Required: No Beliefs That Will Affect Care: None marital status: Current Living Situation: Family current occupational status: retired Feels Safe at Home: Yes Safety Concerns: Feels Safe At This Time Dental Care, Regularly: Yes Seatbelt Use: always Do you think of yourself as: straight/heterosexual Assistive Devices: Cane, Glasses, Hospital Bed, Raised Toilet Seat, Scooter/Electric Scooter, Walker and Wheelchair Assistive Devices Comment: Aramis, Results & Data Vital Signs (Past 12 Hours) Vital Signs Temp Pulse Pulse Pulse Resp BP BP 11/12/24 11:19 11/12/24 11:07 36.4 C L 90 18 104/57 L 11/12/24 07:15 37.0 C 85 18 138/74 11/12/24 07:00 79 11/12/24 03:55 36.4 C L 77 18 118/67 11/12/24 03:45 71 11/12/24 01:30 67 Pulse Ox Pulse Ox O2 Del Method O2 Del Method 11/12/24 11:19 Room Air 11/12/24 11:07 96 Room Air 11/12/24 07:15 98 Room Air 11/12/24 07:00 11/12/24 03:55 97 Room Air 11/12/24 03:45 100 Room Air 11/12/24 01:30 99 Room Air Laboratory Results CBC notes hemoglobin 11.4, hematocrit 35.2, white count 7.8, platelet count [id number]. Electrolytes noted sodium 140, potassium 3.5, chloride 106, bicarb 28, BUN 24, creatinine 1.48, and glucose of 120. High-sensitivity troponin peaked at 86. Diagnostic Findings EKG notes normal sinus rhythm with frequent PACs. product controller reviewed and as described above. PG Care Time/CCT Total # of Minutes Spent Total Time Spent with Patient: Total time spent is greater than 50% in coordination of care (as documented) at patient's floor/unit and/or counseling patient: Coding Level of Care Code 71908 INT INP/OBS CARE 3/75MIN Diagnoses Bradycardia R00.1 Hypertension I10 Hyperlipidemia E78.5
[2024-11-13 08:50] LABS: Hematocrit (blood only) 33.0 % (42.0-52.0); Hemoglobin 11.0 g/dl (14.0-18.0); Mean Corpuscular Hemoglobin 28.9 pg (25.0-34.0); Mean Corpuscular Volume 86.8 fL (80.0-100.0); Platelet Count 110 K/uL (130-400); RDW Standard Deviation 45.2 fL (36.4-46.3); Red Blood Count 3.80 M/uL (4.70-6.10); White Blood Count 6.00 K/ul (4.8-10.8)
[2024-11-13 09:10] LABS: Anion Gap 5.0 (3-11); Blood Urea Nitrogen 19.0 mg/dl (6-23); Calcium 9.0 mg/dl (8.6-10.3); Carbon Dioxide 29.0 mmol/L (21-32); Chloride 108.0 mmol/L (98-107); Creatine Kinase 128.0 U/L (30-223); Creatinine Clr Calc Pharmacy 42.9 ml/min; Glucose 101.0 mg/dl (70-99(Fasting)); Potassium 3.7 mmol/L (3.5-5.1); Sodium 142.0 mmol/L (136-145)
--- NOTE | 2024-11-13 12:50 | Hospitalist Progress Note ---
"Date of Service November 13, 2024 Assessment & Plan (1) Sepsis: (2) Acute UTI (urinary tract infection): (3) Acute kidney injury superimposed on chronic kidney disease: (4) Fall: (5) Elevated troponin: (6) Urinary frequency: (7) Parkinsons disease: (8) GERD (gastroesophageal reflux disease): (9) Hyperlipidemia: (10) Hypertension: (11) B12 deficiency: Plan 73-year-old male with a history of GERD, Parkinson's, hypertension, hyperlipidemia who presents with falls, weakness. initial evaluation concerning for UTI, also with increased creatinine and lactate at 2.5. #Sepsis, UTI #Fall, Ambulatory Dysfunction, mild elevation CK/rhabdo, lumbar stenosis Admit med w/ telemetry to ensure no alternative reason for fall however suspected w/ hx parkisons' incontinence at baseline and pad use could be contributing. Prior ECHO w/ acceptable EF, mod aortic insufficiency, elevated RVSP but IVC not dilated/does not appear overloaded at this time. Additional 1L NSS bolus for sepsis criteria ordered, lactic 1.9 on repeat. TSH wnl WBC Now downtrending and patient has remained afebrile. Urine culture with E. coli, continue Ceftriaxone IV , can be transition to p.o. at discharge CK WNL, okay to resume statin Continue fall precautions, PT/OT consults - daughter pref Mr [place] and CM to follow #ANTONELLA on CKD- Cr 2.17 on admission, baseline unclear (only 1 lab from 2018), likely in setting of poor PO intake/dehydration and ongoing losartan use Losartan remains on hold Creatinine has improved to 1.37 #Parkinsons -- has DBS in place, daughter bringing in supplies. Possible underlying dementia per daughter w/ hallucinations but has been alert/oriented Fall precautions, PT/OT, tx of above Will add low dose seroquel 12.5mg HS - as responded well to one time dose, monitor for worsening parksinons symptoms #HTN | orthostatic hypotension | elevated troponin/ bradycardia Minimal troponin elevation - peaked at 83- suspected demand ischemia from sepsis/ANTONELLA/UTI/infection given no CP. 4 bradycardic events, asymptomatic, does not last long, no AV blocking agents. Cardiology consulted - no acute management, continue to monitor EKG from 11/11 has heart rate 83, PACs. ECHO this past month w/o wma noted Losartan remains on hold from ANTONELLA however blood pressure is on the low side Remains orthostatic - has recieved 2L IVFs. Low dose midodrine, will add sanaz hose. Recheck orthostatic vitals q shift #Urinary incontinence/BPH at baseline -- tx UTI as above, [facility] pads [facility] Continue flomax BID, PSA stable w/ hx prostate ca Monitor w/ bladder scan for tavares if needed #GERD- continue PPI, aspiration precautions #Anemia- appears chronic, no bleeding reported. Checked iron studies/B12 for completeness with falls/balance issues as well. TSH wnl #B12 deficiency- B12 low normal at 204 and 1000mcg PO supplementation has been ordered - rec to continue at pr #Iron deficiency - iron <10, ferritin 236 w/ sepsis and could consider PO iron once moving bowels to repeat stores DVT proph: Heparin SQMonitor to hold for plts Dispo: continued inpatient stay for abx, cardiology evaluation. PT/OT consults pending and likely need for SNF/PCH at pr as discussed w/ daughter Daughter updated by phone 11/12 Admission and Anticipated Discharge Date Admission Date: November 10, 2024 Subjective patient reports slept well last night after seroquel - unsure if he has difficutly sleeping at home chronic pain in his lower bag more tremors this morning orthostatic VS not done at time of my assessment but he denies dizziness Tele - SR PAC 60-70s, one brief episode of bradycardida ~ 1700 last night Review of Systems Review of Systems: All systems reviewed & are unremarkable except as noted in Subjective Physical Exam Physical Exam: General: NAD, VS as above, sitting up in bed, eating breakfast HEENT: MM Dry Resp: normal respiratory effort, lungs clear to auscultation , DBS in left chest CV: RRR, no murmur, Abd: normal bowel sounds, non tender, no hepatosplenomegaly Extremities: Moves all extremities, no edema Neuro: A&O x3, UE tremor Skin: intact, no lesions noted Results & Data Results & Data Vital Signs (Past 12 Hours) Vital Signs Temp Pulse Pulse Resp BP Pulse Ox O2 Del Method 11/13/24 08:12 83 11/13/24 07:13 99.5 F 67 18 135/81 96 Room Air 11/13/24 03:31 98.6 F 68 16 115/52 L 97 Room Air Laboratory Results cbc and chemistry reviewed AM cortisol reviewed PG Care Time/CCT Total # of Minutes Spent Total Time Spent with Patient: Total time spent is greater than 50% in coordination of care (as documented) at patient's floor/unit and/or counseling patient: Coding Level of Care Code 22522 SUB INP/OBS CARE 3/50MIN Diagnoses Sepsis A41.9 Acute UTI (urinary tract infection) N39.0 Acute kidney injury superimposed on chronic kidney disease N17.9; N18.9 Fall W19.XXXA Elevated troponin R79.89 Urinary frequency R35.0 Parkinsons disease G20 GERD (gastroesophageal reflux disease) K21.9 Hyperlipidemia E78.5 Hypertension I10 B12 deficiency E53.8"
[2024-11-13] MEDS: LACTATED RINGER'S 1,000 ML IV ONE (13:24)
[2024-11-13] MEDS: MIDODRINE HCL 2.5 MG TAB PO SCH (13:30)
[2024-11-14] MEDS: ROSUVASTATIN CALCIUM 20 MG TAB PO SCH (08:43)
--- NOTE | 2024-11-14 12:56 | Hospitalist Progress Note ---
"Date of Service November 14, 2024 Assessment & Plan (1) Sepsis: (2) Acute UTI (urinary tract infection): (3) Acute kidney injury superimposed on chronic kidney disease: (4) Fall: (5) Elevated troponin: (6) Urinary frequency: (7) Parkinsons disease: (8) GERD (gastroesophageal reflux disease): (9) Hyperlipidemia: (10) Hypertension: (11) B12 deficiency: Plan 73-year-old male with a history of GERD, Parkinson's, hypertension, hyperlipidemia who presents with falls, weakness. initial evaluation concerning for UTI, also with increased creatinine and lactate at 2.5. #Sepsis, UTI #Fall, Ambulatory Dysfunction, mild elevation CK/rhabdo, lumbar stenosis Was given sepsis bolus an down trending lactate. TSH WNL. WBC Now downtrending and patient has remained afebrile. Urine culture with E. coli, continue Ceftriaxone IV , can be transition to p.o. at discharge CK WNL, okay to resume statin PT/OT rec rehab, CM following, awaiting insurance auth. #NATONELLA on CKD- Cr 2.17 on admission, baseline unclear (only 1 lab from 2018), lik johnny in setting of poor PO intake/dehydration and ongoing losartan use Losartan remains on hold - and likely to be discontinued at discharge with orthostatic hypotension Creatinine has improved to 1.37 #Parkinsons -- has DBS in place, daughter bringing in supplies. Possible underlying dementia per daughter w/ hallucinations but has been alert/oriented Fall precautions, PT/OT, tx of above Will add low dose seroquel 12.5mg HS - as responded well to one time dose, monitor for worsening parksinons symptoms #HTN | orthostatic hypotension | elevated troponin/ bradycardia Minimal troponin elevation - peaked at 83- suspected demand ischemia from sepsis/ANTONELLA/UTI/infection given no CP. 5 bradycardic events (seem to occur once a day, varying times), asymptomatic, does not last long, no AV blocking agents. Cardiology consulted - no acute management, continue to monitor EKG from 11/11 has heart rate 83, PACs. ECHO this past month w/o wma noted Losartan remains on hold from ANTONELLA however blood pressure is on the low side Orthostatic VS improved with addition of low dose midodrine #Urinary incontinence/BPH at baseline -- tx UTI as above, uses pads at [facility] Continue flomax BID, PSA stable w/ hx prostate ca Monitor w/ bladder scan for tavares if needed #GERD- continue PPI, aspiration precautions #Anemia- appears chronic, no bleeding reported. Checked iron studies/B12 for completeness with falls/balance issues as well. TSH wnl #B12 deficiency- B12 low normal at 204 and 1000mcg PO supplementation has been ordered - rec to continue at dc #Iron deficiency - iron <10, ferritin 236 w/ sepsis and could consider PO iron once moving bowels to repeat stores DVT proph: Heparin SQMonitor to hold for plts Dispo: continued inpatient stay, stable for downgrade to medical Daughter updated by phone 11/12 Admission and Anticipated Discharge Date Admission Date: November 10, 2024 Subjective Patient seen this morning sitting up in bed, reports that something is itching in his eye did feel momentarily dizzy with orthostatic VS this morning Denies pain, good appetite Does not feel when his HR is slow Tele - SR 70s, one episode of SB in the morning Review of Systems Review of Systems: All systems reviewed & are unremarkable except as noted in Subjective Physical Exam Physical Exam: General: NAD, VS as above, sitting up in bed, eating breakfast HEENT: MM Dry Resp: normal respiratory effort, lungs clear to auscultation , DBS in left chest CV: RRR, no murmur, Abd: normal bowel sounds, non tender, no hepatosplenomegaly Extremities: Moves all extremities, no edema : condom cath in place Neuro: A&O x3, UE tremor much improved today Skin: intact, no lesions noted Results & Data Results & Data Vital Signs (Past 12 Hours) Vital Signs Temp Pulse Pulse Resp BP Pulse Ox O2 Del Method 11/14/24 11:06 98.1 F 62 18 122/69 97 Room Air 11/14/24 09:26 68 11/14/24 07:35 Room Air 11/14/24 07:23 97.7 F 67 18 137/70 95 Room Air 11/14/24 02:50 97.5 F L 67 18 133/69 97 Room Air PG Care Time/CCT Total # of Minutes Spent Total Time Spent with Patient: Total time spent is greater than 50% in coordination of care (as documented) at patient's floor/unit and/or counseling patient: Coding Level of Care Code 39679 SUB INP/OBS CARE 2/35MIN Diagnoses Sepsis A41.9 Acute UTI (urinary tract infection) N39.0 Acute kidney injury superimposed on chronic kidney disease N17.9; N18.9 Fall W19.XXXA Elevated troponin R79.89 Urinary frequency R35.0 Parkinsons disease G20 GERD (gastroesophageal reflux disease) K21.9 Hyperlipidemia E78.5 Hypertension I10 B12 deficiency E53.8"
[2024-11-15 07:48] VITALS: RESP 18; TEMP 97.7
--- NOTE | 2024-11-15 13:38 | Hospitalist Progress Note ---
"Date of Service November 15, 2024 Assessment & Plan (1) Sepsis: (2) Acute UTI (urinary tract infection): (3) Acute kidney injury superimposed on chronic kidney disease: (4) Fall: (5) Elevated troponin: (6) Urinary frequency: (7) Parkinsons disease: (8) GERD (gastroesophageal reflux disease): (9) Hyperlipidemia: (10) Hypertension: (11) B12 deficiency: Plan 73-year-old male with a history of GERD, Parkinson's, hypertension, hyperlipidemia who presents with falls, weakness. initial evaluation concerning for UTI, also with increased creatinine and lactate at 2.5. #Sepsis, UTI #Fall, Ambulatory Dysfunction, mild elevation CK/rhabdo, lumbar stenosis Was given sepsis bolus an down trending lactate. TSH WNL. WBC Now downtrending and patient has remained afebrile. Urine culture with E. coli, continue Ceftriaxone IV , - last dose 11/16 CK WNL, okay to resume statin PT/OT rec rehab, CM following, awaiting insurance auth. #ANTONELLA on CKD- Cr 2.17 on admission, baseline unclear (only 1 lab from 2018), likely in setting of poor PO intake/dehydration and ongoing losartan use Losartan remains on hold - and likely to be discontinued at discharge with orthostatic hypotension Creatinine has improved to 1.37 #Parkinsons -- has DBS in place, daughter bringing in supplies. Possible underlying dementia per daughter w/ hallucinations but has been alert/oriented Fall precautions, PT/OT, tx of above Will add low dose seroquel 12.5mg HS - as responded well to one time dose, monitor for worsening parksinons symptoms #HTN | orthostatic hypotension | elevated troponin/ bradycardia Minimal troponin elevation - peaked at 83- suspected demand ischemia from sepsis/ANTONELLA/UTI/infection given no CP. 5 bradycardic events (seem to occur once a day, varying times), asymptomatic, does not last long, no AV blocking agents. Cardiology consulted - no acute management, continue to monitor EKG from 11/11 has heart rate 83, PACs. ECHO this past month w/o wma noted Losartan remains on hold from ANTONELLA however blood pressure is on the low side Orthostatic VS improved with addition of low dose midodrine #Urinary incontinence/BPH at baseline -- tx UTI as above, uses pads at [facility] Continue flomax BID, PSA stable w/ hx prostate ca Monitor w/ bladder scan for tavares if needed #GERD- continue PPI, aspiration precautions #Anemia- appears chronic, no bleeding reported. Checked iron studies/B12 for completeness with falls/balance issues as well. TSH wnl #B12 deficiency- B12 low normal at 204 and 1000mcg PO supplementation has been ordered - rec to continue at dc #Iron deficiency - iron <10, ferritin 236 w/ sepsis and could consider PO iron once moving bowels to repeat stores DVT proph: Heparin SQMonitor to hold for plts Dispo: continued inpatient stay awaiting insurance auth Daughter updated by phone 11/12, LM 11/14 and updated 11/15 Admission and Anticipated Discharge Date Admission Date: November 10, 2024 Supervising Physician Co-Signing Physician Notes Attending Attestation - Chart reviewed, care plan d/w SANDEE Max. I agree w/ the miguel components of her documentation. Benjamin Gilmore MD Subjective patient seen sitting up in the chair. Due to his report that he had a brief second of dizziness while doing his orthostatic vital signs, improved from prior day Chronic back pain but no other acute concerns. Looking forward to getting washed up today Review of Systems Review of Systems: All systems reviewed & are unremarkable except as noted in Subjective Physical Exam Physical Exam: General: NAD, vitals as above, sitting up in the chair Pulm: breathing unlabored CV: well perfused Back: Nontender to palpation : Condom catheter in place extremities: moves all extremities Results & Data Results & Data Vital Signs (Past 12 Hours) Vital Signs Temp Pulse Resp BP Pulse Ox O2 Del Method 11/15/24 07:47 97.7 F 62 18 133/69 96 Room Air 11/15/24 07:46 Room Air PG Care Time/CCT Total # of Minutes Spent Total Time Spent with Patient: Total time spent is greater than 50% in coordination of care (as documented) at patient's floor/unit and/or counseling patient: Coding Level of Care Code None Medical Decision Making Straight Forward Diagnoses Sepsis A41.9 Acute UTI (urinary tract infection) N39.0 Acute kidney injury superimposed on chronic kidney disease N17.9; N18.9 Fall W19.XXXA Elevated troponin R79.89 Urinary frequency R35.0 Parkinsons disease G20 GERD (gastroesophageal reflux disease) K21.9 Hyperlipidemia E78.5 Hypertension I10 B12 deficiency E53.8"
--- NOTE | 2024-11-15 15:18 | Discharge Summary ---
"Discharge Summary Date of Service November 15, 2024 Principal Dx & Hospital Course #1 = Principal Diagnosis (1) Sepsis: (2) Acute UTI (urinary tract infection): (3) Acute kidney injury superimposed on chronic kidney disease: (4) Fall: (5) Elevated troponin: (6) Urinary frequency: (7) Parkinsons disease: (8) GERD (gastroesophageal reflux disease): (9) Hyperlipidemia: (10) Hypertension: (11) B12 deficiency: Plan #Sepsis, UTI #Fall, Ambulatory Dysfunction, mild elevation CK/rhabdo, lumbar stenosis 73-year-old male with a history of GERD, Parkinson's, hypertension, hyperlipidemia who presents with falls, weakness. initial evaluation concerning for UTI, also with increased creatinine and lactate at 2.5. Was treated with ceftriaxone for E.Coli UTI, has one additional day of cefidinir. lactate improved after sepsis bolus. CK resolved. PT/OT rec rehab - discharge to [facility] today. #ANTONELLA on CKD- Cr 2.17 on admission, baseline unclear (only 1 lab from 2018), likely in setting of poor PO intake/dehydration and ongoing losartan use. Losartan discontinued with orthostatic hypotension. Cr improved to baseline. #Parkinsons -- has DBS in place, daughter bringing in supplies. Possible underlying dementia per daughter w/ hallucinations. Low-dose seroquel 12.5mg HS started and tolerated without issue. #HTN | orthostatic hypotension | elevated troponin/ bradycardia Minimal troponin elevation - peaked at 83- suspected demand ischemia from sepsis/ANTONELLA/UTI/infection given no CP. Orthostatic VS improved with addition of low dose midodrine. 5 bradycardic events (seem to occur once a day, varying times), asymptomatic, does not last long, no AV blocking agents. Cardiology consulted - no acute management, continue to monitor EKG from 11/11 has heart rate 83, PACs. ECHO this past month w/o wma noted #Urinary incontinence/BPH at baseline -- Continue flomax BID, PSA stable w/ hx prostate ca #GERD- continue PPI, aspiration precautions #Anemia- appears chronic, no bleeding reported. Checked iron studies/B12 for completeness with falls/balance issues as well. TSH wnl #B12 deficiency- B12 low normal at 204 and 1000mcg PO supplementation has been ordered Dispo: discharge to rehab today Daughter updated by phone 11/12, LM 11/14 and updated 11/15 Notes For Next Care Provider Medication Changes From Visit B12 supplementation losartan d/c'ed Admission HPI Per Admitting Provider 73yo male presented after falling out of bed this morning and not being able to get up. Increased weakness over the past 48 hours. Wet the bed when trying to get out of bed. UA appears infected. CT head negative CTA head/neck w/ some plaque but no acute CVA Is on 81mg daily. Patient reports falling when attempting to get out of bed early this morning to urinate/increased frequency, when he fell down onto his back and was unable to get up. Reports increased weakness over the past 48 hours, difficulty caring for himself. Was not down long as daughter heard him fall and attempted to get him up. CK minimal elevation 496. Daughter and her significant other do most of his care except bathing and concerns for needing additional help/placement moving forward. Daughter reports incontinence issues at baseline/[facility]. No fever/chills, does have tremor at baseline, hx parkinsons'. DBS in place since ~[id number]. Does have some left sided pain, back pain, takes tylenol. Would like a dose. Hallucinating on/off over past year but is alert/oriented to person/place Dominic Wetzel, year 2024, month October while in room. WBC elevated 12.9k Cr 2.17 with baseline ~1.2. No CP, minimal trop elevation on high sensitivity testing. Currently reporting being hungry, would like something to eat. Will plan for tx UTI/monitoring cultures, PT/OT, possible rehab vs SNF vs placement. CM to follow for ongoing needs. ER Course: Ceftriaxone 2gm IV x 1, 1L NSS. Additional 1L NSS ordered given Lactic 2.5 for sepsis protocol. Full code as discussed w/ patient and daughter at bedside. Questions/concerns addressed a this time. Discharge Exam General: NAD, vitals as above, sitting up in the chair Pulm: breathing unlabored CV: well perfused extremities: moves all extremities Discharge Plan Discharge Items Patient Disposition: Transfer [facility] Reason For Visit: FALL, UTI, AMBULATORY DYSFUNCTION Discharge Diagnosis: UTI Condition on Discharge: Fair Activity: As commented below Activity Comment: work with therapy to get stronger Bathing: No limitations Weightbearing: Full weightbearing Non-emergency contact: Primary Care Provider Call non-emergency contact if: you have any medication questions, your symptoms worsen and your temperature is above 101 Follow-up/Referrals: [facility],Hospital [Primary Care Provider] - (follow up within one week after discharge from rehab ) Diet: Regular Addtl Attending Provider Instructions: Mr. Grant, You were hospitalized after having falls and weakness at home. You were found to have an urinary tract infection. This was treated with IV antibiotics and you will have one more day of oral antibiotics at rehab. It was also found that you have orthostatic Hypotension - this means that your blood pressure drops when you change positions. This could have been contributing to your falls. You have been started on low dose midodrine three times a day and your blood pressures and symptoms have greatly improved. Your losartan has been discontinued. A low dose seroquel has been added to help with your sleep at night. If you have any side effects, it can be discontinued. You have been started on a B12 supplement - take this daily. You were evaluated by cardiology for your slow pauses that happen about once a day, but you are asymptomatic when these happen. Cardiology did not recommend any medication changes or any intervention. Please follow up with your PCP after discharge from rehab. Pending Studies at Discharge: No Stand-Alone Forms: My [facility] Skilled Items Patient informed of condition?: Yes DNR: No Discharge Level of Care: Skilled Communicable Disease: No Discharge Prognosis: Stable Lines: None Urinary Catheter: No Medications and DC Order Prescriptions: New quetiapine 25 mg Tablet 12.5 mg PO HS 30 Days Qty: 15 0RF cyanocobalamin (vitamin B-12) 500 mcg Tablet 1,000 mcg PO QAM 30 Days Qty: 60 0RF midodrine 2.5 mg Tablet 2.5 mg PO TID 30 Days Qty: 90 0RF cefdinir 300 mg capsule 300 mg PO BID Qty: 2 0RF Continued tamsulosin 0.4 mg capsule 0.4 mg PO BID 90 Days Qty: 180 1RF multivitamin [Daily Multi-Vitamin] tablet 1 tab PO DAILY aspirin 81 mg tablet,delayed release (DR/EC) 81 mg PO DAILY rosuvastatin 40 mg tablet 40 mg PO DAILY dexlansoprazole 60 mg capsule,biphase delayed releas 60 mg PO QAM Discontinued losartan 25 mg tablet 25 mg PO QAM Discharge Orders: Discharge Order (Routine); Ordered 11/15/24 Ordered By: Ruba Max Admission Data Admit Date/Time: 11/10/24 18:29 Attending Provider: Benjamin Gilmore Admit Provider: Dylan Quijano Primary Care Provider: [facility] Other Providers: Dylan Quijano; Kitty Hearn; Krystian Oconnell Hospital Stay Data Consultations 11/10/24 18:02 ED Decision to Admit Stat 11/12/24 10:31 Consult Cardiology Routine Diagnostic Imagining Performed 11/10/24 15:23 CT cervical spine wo con Stat CT head/brain wo con Stat CTA head w con [CT angio head w con] Stat CTA neck with con [CT angio neck with con] Stat 11/10/24 15:24 CT lumbar spine wo con Stat Pending Results Patient Have Any Pending Studies at Discharge: No Discharge Instructions Given to Patient (Per Discharging Provider) Mr. Grant, Don were hospitalized after having falls and weakness at home. You were found to have an urinary tract infection. This was treated with IV antibiotics and you will have one more day of oral antibiotics at rehab. It was also found that you have orthostatic Hypotension - this means that your blood pressure drops when you change positions. This could have been contributing to your falls. You have been started on low dose midodrine three times a day and your blood pressures and symptoms have greatly improved. Your losartan has been discontinued. A low dose seroquel has been added to help with your sleep at night. If you have any side effects, it can be discontinued. You have been started on a B12 supplement - take this daily. You were evaluated by cardiology for your slow pauses that happen about once a day, but you are asymptomatic when these happen. Cardiology did not recommend any medication changes or any intervention. Please follow up with your PCP after discharge from rehab. Total Time Total Time Spent Total Time Spent (In Minutes): Time spent day of discharge 33 minutes including direct patient care, medication reconciliation, documentation, review of labs and images, and coordination of care. Coding Level of Care Code 58271 INP/OBS DISCH >30 MIN Diagnoses Sepsis A41.9 Acute UTI (urinary tract infection) N39.0 Acute kidney injury superimposed on chronic kidney disease N17.9; N18.9 Fall W19.XXXA Elevated troponin R79.89 Urinary frequency R35.0 Parkinsons disease G20 GERD (gastroesophageal reflux disease) K21.9 Hyperlipidemia E78.5 Hypertension I10 B12 deficiency E53.8"
[2024-11-15 16:09] VITALS: BP 103/64; PULSE 65; O2SAT 97
== END 2024-11-15 17:39 | DRG 872 ==
LOC: SUATTDRO → ED 12:39 → SUATTDRO 18:29 → 2N 18:29